=== PATIENT | female | born 1940 | race Caucasian/White ===

== ENCOUNTER 2016-11-30 11:01 | Outpatient (CLI) | payer OTHER | END 2016-11-30 11:02 | disposition home or self-care (01) | DX: M85.89 Other specified disorders of bone density and structure, multiple sites (principal) ==

== ENCOUNTER 2017-03-04 13:26 | Outpatient (CLI) | payer OTHER ==
[2017-03-04 14:17] LABS: HEMOGLOBIN A1C 0.55 g/dL
[2017-03-05 06:03] LABS: TEST RESULT REPORT (())
== END 2017-03-04 13:27 | disposition home or self-care (01) ==
LOC: LAB 13:26
PROVIDERS: ATTEND Nurse Practitioner Family
DX: E55.9 Vitamin D deficiency, unspecified (principal); R73.01 Impaired fasting glucose
CPT/HCPCS: 36415; 81599; 82306; 83036; 85651; 86140

== ENCOUNTER 2017-09-09 07:25 | Day surgery (SDC) | payer OTHER ==
[~2017-09-09 07:25] MED LIST: BRIMONIDINE 0.2% OPHTH DROPS 5 ML ONE; CYCLOPENTOLATE 1% OPHTH DROPS 2 ML ONE; KETOROLAC 0.45% OPHTH DROPS ONE; PHENYLEPHRINE 2.5% OPHTH 2 ML DROPS ONE; PROPARACAINE 0.5% OPHTH DROPS 15 ML ONE; TIMOLOL 0.5% OPHTH DROPS ONE
[2017-09-09] MEDS: LACTATED RINGERS 500 ML IV ONE (07:53)
[2017-09-09] MEDS ORDERED: MIDAZOLAM 2 MG/2 ML VIAL IVP ONE (08:35)
[2017-09-09] MEDS: BRIMONIDINE 0.2% OPHTH DROPS 5 ML OPTH ONE (08:40)
[2017-09-09] MEDS: EPINEPHrine 1 MG/ML AMP IVP ONE (08:40)
[2017-09-09] MEDS: BSS/LIDOCAINE/EPINEPHRINE 1 ML SYRINGE IO ONE ×2 (08:41)
[2017-09-09] MEDS: CHONDR SULF/HYALURONATE SYRINGE IO ONE (08:41)
[2017-09-09] MEDS: TIMOLOL 0.5% OPHTH DROPS OPTH ONE (08:41)
[2017-09-09] MEDS: TRIAMCIN/MOXIFLOX/VANCO 1 ML VIAL IO ONE ×2 (08:42)
[2017-09-09] MEDS: PROPARACAINE 0.5% OPHTH DROPS 15 ML LEFTEYE ONE (08:42)
[2017-09-09 09:11] VITALS: BP 145/70
--- NOTE | 2017-09-09 10:39 | OPERATIVE REPORT ---
DATE OF SURGERY: 09/09/2017 00:00:00 PREOPERATIVE DIAGNOSIS: Visually significant cataract, left eye. This was her first cataract surgery . POSTOPERATIVE DIAGNOSIS: Visually significant cataract, left eye. This was her first cataract surger y. NAME OF PROCEDURE: Phacoemulsification posterior chamber intraocular lens implant, left eye. SURGEON: Kory Hernandez MD ANESTHESIA: Monitored anesthesia care. COMPLICATIONS: None. 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 Best corrected visual acuity was 20/25 with glare to 20/70 in the left eye. Indications for surgery were overall decrease in vision, difficulty with driving in low light or at night and difficulty driving at night because of headlights from othe r vehicles and/or streetlights. She was consented at length concerning the risks and benefits of abby ract surgery after which she expressed a desire to proceed with surgery. OPERATIVE PROCEDURE: The patient was taken into OR #3 and placed under monitored anesthesia care. A s urgical time-out was conducted confirming correct patient, correct procedure and correct surgical sit e. She was given topical anesthesia and then prepped and draped in the usual sterile fashion. The eye was entered at the 6 and 3 o'clock positions. Intracameral Shugarcaine was injected into the anterio r chamber followed by Viscoat. A continuous tear curvilinear capsulorrhexis was performed. The nucleu s was hydrodissected and phacoemulsified. The cortex was evacuated using automated infusion and aspir ation. Provisc was injected into the capsular bag and a 22.5 diopter intraocular lens inserted into t he bag. Approximately 0.8 mL of a mixture of triamcinolone, moxifloxacin, and vancomycin was injected subconjunctivally in the superior quadrant for infection and inflammation prophylaxis. I/A was used to evacuate the viscoelastic materials. The eye was inflated, the physiologic pressure using balanced salt solution found to be watertight. The patient was taken from the operating room in good conditio n and given postoperative instructions. JOB #: [id number] EXT JOB #:[id number]
== END 2017-09-09 07:26 | disposition home or self-care (01) ==
LOC: SDS 07:25
PROVIDERS: ATTEND Ophthalmology
PROC: 08RK3JZ Replacement of Left Lens with Synthetic Substitute, Percutaneous Approach (ICD-10-PCS; principal; 2017-09-09 08:30)
DX: H25.12 Age-related nuclear cataract, left eye (principal); I10 Essential (primary) hypertension; H35.3130 Nonexudative age-related macular degeneration, bilateral, stage unspecified; Z87.891 Personal history of nicotine dependence
CPT/HCPCS: 66984; A9270; J3490; V2632

== ENCOUNTER 2018-05-03 08:00 | Outpatient (CLI) | payer OTHER ==
[2018-05-03 12:36] LABS: BASOPHILS % (AUTO) 0.6 %; EOSINOPHILS # (AUTO) 0.2 10^3/uL (0.0-0.7); EOSINOPHILS % (AUTO) 2.5 %; HGB - HEMOGLOBIN 13.5 g/dL (12.0-16.0); LYMPHOCYTES % (AUTO) 25.3 %; MEAN CORPUSCULAR HEMOGLOBIN 29.6 pg (27.0-31.0); MEAN CORPUSCULAR HGB CONC 34.1 g/dL (32.0-36.0); MEAN CORPUSCULAR VOLUME 86.8 fL (81.0-99.0); MEAN PLATELET VOLUME 7.4 fL (7.9-10.8); MONOCYTES # (AUTO) 0.6 10^3/uL (0.0-1.0); MONOCYTES % (AUTO) 7.9 %; NEUTROPHILS # (AUTO) 5.1 10^3/uL (1.5-6.6); NEUTROPHILS % (AUTO) 63.7 %; PLT - PLATELET COUNT 261 10^3/uL (130-450); RED BLOOD COUNT 4.57 10^6/uL (4.20-5.40); RED CELL DISTRIBUTION WIDTH 14.5 % (12.0-15.0); WHITE BLOOD COUNT 8.1 x10^3/uL (4.8-10.8)
[2018-05-03 13:07] LABS: ALBUMIN 4.1 g/dL (3.2-5.5); ALBUMIN/GLOBULIN RATIO 1.1 (1.0-2.2); ALKALINE PHOSPHATASE 82 IU/L (42-121); ALT ALANINE AMINOTRANSFERASE 27 IU/L (10-60); AST ASPARTATE AMINOTRANSFERASE 28 IU/L (10-42); BILIRUBIN,TOTAL 0.7 mg/dL (0.2-1.0); BUN - BLOOD UREA NITROGEN 17 mg/dL (6-20); CALCIUM 9.8 mg/dL (8.5-10.3); CARBON DIOXIDE - CO2 29 mmol/L (21-32); CHLORIDE 103 mmol/L (101-111); CREATININE 0.8 mg/dL (0.4-1.0); GFR - MDRD 69 (>89); GLUCOSE 110 mg/dL (70-100); SODIUM 138 mmol/L (135-145); TOTAL PROTEIN 7.9 g/dL (6.7-8.2)
== END 2018-05-03 08:01 ==
LOC: LAB.WCP 08:00
PROVIDERS: ATTEND Family Medicine
DX: M31.6 Other giant cell arteritis (principal); M35.3 Polymyalgia rheumatica; I10 Essential (primary) hypertension
CPT/HCPCS: 36415; 80053; 84443; 85025; 85651

== ENCOUNTER 2018-07-12 11:12 | Outpatient (CLI) | payer OTHER ==
--- NOTE | 2018-07-13 14:15 | Mammography Report ---
Reason: SCREENING w MARLO Procedure Date: 07/12/2018 Accession Number: [id number] / [id number] Procedure: LUIS - Screening Mammo w/Marlo CPT Code: FULL RESULT: EXAM: Screening Mammo w/Marlo DATE: 07/12/2018 11:49 AM CLINICAL HISTORY: 78 year-old nulliparous female with a sister with ovarian cancer in her 50s. TECHNIQUE: Bilateral CC and MLO views were obtained. COMPARISON: 09/30/2015, 05/03/2012. FINDINGS: The breasts demonstrate scattered fibroglandular densities bilaterally. 2 well-circumscribed hyperdense nodules in the left upper outer breast are stable. No suspicious masses, clustered microcalcifications, or regions of architectural distortion are identified. IMPRESSION: Benign findings RECOMMENDATION: Routine annual screening unless otherwise clinically indicated. BIRADS CATEGORY 2: Benign findings STANDARD QUALIFYING STATEMENTS: 1. This examination was not reviewed with the aid of Computer-Aided Detection (CAD). 2. A negative or benign imaging report should not delay biopsy if clinically suspicious findings are present. Consider surgical consultation if warrented. More than 5% of cancers are not identified by imaging. 3. Dense breasts may obscure an underlying neoplasm. 4. This examination was reviewed with the aid of 3D breast imaging (tomosynthesis).
== END 2018-07-12 11:13 | disposition home or self-care (01) ==
LOC: DI 11:12
DX: Z12.31 Encounter for screening mammogram for malignant neoplasm of breast (principal); Z80.41 Family history of malignant neoplasm of ovary
CPT/HCPCS: 77063; 77067

== ENCOUNTER 2018-12-22 14:08 | Outpatient (CLI) | payer OTHER ==
--- NOTE | 2018-12-22 16:38 | DEXA Report ---
Reason: ASYMPTOMATIC POSTMENOPAUSAL STATUS Procedure Date: 12/22/2018 Accession Number: [id number] / [id number] Procedure: DEX - Dexa Spine and/or Hip CPT Code: FULL RESULT: EXAM: Dexa Spine and/or Hip DATE: 12/22/2018 2:28 PM CLINICAL HISTORY: ASYMPTOMATIC POSTMENOPAUSAL STATUS TECHNIQUE: Dual energy x-ray absorptiometry (DXA) was performed on a Coquelux System. Regions measured are the AP Spine, femoral neck, and if needed forearm. COMPARISON: 11/30/2016 In accordance with the International Society for Clinical Densitometry (ISCD) guidelines, data from previous exams may be reanalyzed using current recommendations and techniques. This is done to allow a more accurate basis for comparison with the current study. FINDINGS: The data for the lumbar spine is as follows: BMD (g/cm/cm) T-SCORE Z-SCORE REGION L1 0.757 -3.1 -2.1 L2 0.774 -3.5 -2.6 L3 1.094 -0.9 0.1 L4 1.096 -0.9 0.1 TOTAL 0.942 -2.0 -1.0 NOTE: All evaluable vertebrae are used for classification The data for the hip is as follows: BMD (g/cm/cm) T-SCORE Z-SCORE REGION Neck 0.700 -2.4 -0.8 TOTAL 0.783 -1.8 -0.4 NOTE: The femoral neck or total proximal femur, whichever is lowest, is used for classification. DXA RESULTS SUMMARY: Spine SCAN DATE AGE BMD CHANGE VS CHANGE VS PREVIOUS PREVIOUS % [birth year][age]22/2018 [age] 0[age]942 0.031* 3.4* 11/30/2016 [age] 0.911 * Denotes significant change at the 95% confidence level. Denotes dissimilar scan types or analysis methods. DXA RESULTS SUMMARY: Hip SCAN DATE AGE BMD CHANGE VS CHANGE VS PREVIOUS PREVIOUS % [birth year]22/2018 78.4 0.783 0.000 0.0 11/30/2016 76.3 0.783 * Denotes significant change at the 95% confidence level. Denotes dissimilar scan types or analysis methods. IMPRESSION: THE WHO CLASSIFICATION BASED ON THE INTERNATIONAL REFERENCE STANDARD IS OSTEOPENIA. THE FRACTURE RISK IS INCREASED. RECOMMENDATION: Patients with diagnosis of osteoporosis or osteopenia should have regular bone mineral density assessment. For those eligible for Medicare, routine testing is allowed once every 2 years. Testing frequency can be increased for patients who have rapidly progressing disease or for those who are receiving medical therapy to restore bone mass. COMMENT: World Health Organization (WHO) definitions for osteoporosis and osteopenia: NORMAL BMD: T-score at -1.0 or higher, fracture risk is low OSTEOPENIA BMD: T-score between -1.0 and -2.5, fracture risk is increased. OSTEOPOROSIS BMD: T-score at -2.5 or lower, fracture risk is high. National Osteoporosis Foundation recommends: 1. Obtain adequate dietary calcium (at least 1200 mg per day) and vitamin D (400-800 international units per day). 2. Participate, as appropriate, in regular weightbearing and muscle-strengthening exercise. 3. Avoid tobacco use and reduce alcohol and caffeine intake. 4. For more detailed information see the website at www.NOF.org.
== END 2018-12-22 14:09 | disposition home or self-care (01) ==
LOC: DI 14:08
PROVIDERS: ATTEND Family Medicine
DX: M85.89 Other specified disorders of bone density and structure, multiple sites (principal)
CPT/HCPCS: 77080

== ENCOUNTER 2019-05-09 08:00 | Outpatient (CLI) | payer OTHER | END 2019-05-09 23:59 | LOC: LAB.WCP 08:00 | PROVIDERS: ATTEND Family Medicine | DX: M85.80 Other specified disorders of bone density and structure, unspecified site (principal) | CPT/HCPCS: 36415; 82306 ==

== ENCOUNTER 2019-10-12 09:11 | Emergency (ER) | payer OTHER ==
--- NOTE | 2019-10-12 09:31 | ED Physician Documentation ---
PD HPI CHEST PAIN - Stated complaint Stated Complaint: CP - Chief complaint Chief Complaint: Cardiac - History obtained from History obtained from: Patient - History of Present Illness Timing - onset: Last night, Yesterday Timing - onset during: Rest Timing - details: Abrupt onset (Onset yesterday/yesterday evening of a feeling of a fast heart rate associated with lightheadedness. No chest pressure per se. She has chronic mild leg edema without any recent increase. She had been having some shoulder and chest pain for about a week which is worse with lifting her arms and movement and the chest component is worse with movement and palpation. She had not had the fast heart rate feeling over the past week but just started yesterday.), Still present Quality: Pressure, Tightness, Aching (She has been having pain in both shoulders worse with reaching above shoulder height or overhead and also developing some pain in the anterior chest wall with movement and deep breathing. She has had this for about a week. She then developed the fast heart rate feeling yesterday so it sounds separate.) Location: Substernal Associated symptoms: Feeling faint / dizzy, Palpitations. No: Shortness of air, Diaphoresis, Nausea, Vomiting Similar symptoms before: Has not had sx before Review of Systems Constitutional: reports: Fatigue. denies: Fever, Chills, Myalgias Nose: denies: Rhinorrhea / runny nose, Congestion Throat: denies: Sore throat Cardiac: reports: Chest pain / pressure (aching pain for a week in sternal area chest and also both shoulders prior to that.) Respiratory: denies: Cough GI: denies: Abdominal Pain, Nausea, Vomiting, Diarrhea Skin: denies: Rash, Lesions Neurologic: reports: Generalized weakness. 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 HEENT: Tonsil/Adenoidectomy - Present Medications Home Medications: Ambulatory Orders Medication Instructions Recorded Confirmed amLODIPine [Norvasc] 5 mg PO DAILY 09/08/17 10/12/19 lisinopriL [Lisinopril] 40 mg PO DAILY 09/08/17 10/12/19 Olopatadine HCl [Patanol] 1 drops EACHEYE BID 10/12/19 10/12/19 Rivaroxaban [Xarelto] 20 mg PO DAILY #15 tablet 10/12/19 dexAMETHasone [Decadron] 4 mg PO DAILY #5 tablet 10/12/19 diltiaZEM CD [Cardizem Cd] 180 mg PO DAILY #15 capsule 10/12/19 - Allergies Allergies/Adverse Reactions: Allergies Allergy/AdvReac Type Severity Reaction Status Date / Time No Known Drug Allergies Allergy Verified 10/12/19 09:20 - Social History Does the pt smoke?: Yes Smoking Status: Former smoker Does the pt drink ETOH?: Yes Does the pt have substance abuse?: No - Immunizations Immunizations are current?: Yes - POLST Patient has POLST: No PD ED PE NORMAL - Vitals Vital signs reviewed: Yes - General General: Alert and oriented X 3, Well developed/nourished - HEENT HEENT: Ears normal, Pharynx benign - Neck Neck: Supple, no meningeal sign, No adenopathy - Cardiac Cardiac: No murmur, Other (There is parasternal chest wall tenderness on both left and right without any redness rash or sores.). No: RRR (Regular but tachycardic at a approximately 145.) - Abdomen Abdomen: Soft, Non tender - Derm Derm: Normal color, Warm and dry - Extremities Extremities: No deformity, No edema, No calf tenderness / cord, Other (There is tenderness in both lateral shoulders and at the AC joints. She has a limited range of motion above shoulder level because of pain in the shoulders. There is no rash redness or swelling noted.) - Neuro Neuro: Alert and oriented X 3, No motor deficit, Normal speech Eye Opening: Spontaneous Motor: Obeys Commands Verbal: Oriented GCS Score: 15 Results - Vitals Vitals: Vital Signs - 24 hr 10/12/19 10/12/19 10/12/19 09:20 10:47 12:00 Temperature 36.5 C Heart Rate 146 H 143 H 118 H Respiratory 16 16 14 Rate Blood Pressure 140/101 H 128/77 110/78 O2 Saturation 97 96 98 10/12/19 10/12/19 13:56 14:12 Temperature Heart Rate 95 123 H Respiratory 15 14 Rate Blood Pressure 119/77 115/82 H O2 Saturation 96 96 Oxygen O2 Source Room air - EKG (time done) 09:18 Rate: Rate (enter#) (143) Rhythm: SVT QRS: Normal Ischemia: Normal ST segments. No: ST elevation c/w ischemia, ST depression - Labs Labs: Laboratory Tests 10/12/19 10/12/19 10/12/19 10:05 10:05 10:05 WBC 9.6 RBC 4.59 Hgb 13.5 Hct 40.8 MCV 88.9 MCH 29.4 MCHC 33.1 RDW 13.2 Plt Count 251 MPV 8.9 Neut # (Auto) 7.0 H Lymph # (Auto) 1.5 [place] # (Auto) 0.9 Eos # (Auto) 0.1 Baso # (Auto) 0.1 Absolute Nucleated RBC 0.00 Nucleated RBC % 0.0 ESR Sodium 135 Potassium 3.9 Chloride 102 Carbon Dioxide 24 Anion Gap 9.0 BUN 15 Creatinine 0.9 Estimated GFR (MDRD) 60 L Glucose 234 H Calcium 9.1 Magnesium 2.1 Total Bilirubin 1.0 AST 17 ALT 18 Alkaline Phosphatase 84 Troponin I High Sens 5.7 B-Natriuretic Peptide Total Protein 7.3 Albumin 3.8 Globulin 3.5 Albumin/Globulin Ratio 1.1 Lipase 27 TSH Rheumatoid Factor 10/12/19 10/12/19 10/12/19 10:05 10:05 10:05 WBC RBC Hgb Hct MCV MCH MCHC RDW Plt Count MPV Neut # (Auto) Lymph # (Auto) [place] # (Auto) Eos # (Auto) Baso # (Auto) Absolute Nucleated RBC Nucleated RBC % ESR 55 H Sodium Potassium Chloride Carbon Dioxide Anion Gap BUN Creatinine Estimated GFR (MDRD) Glucose Calcium Magnesium Total Bilirubin AST ALT Alkaline Phosphatase Troponin I High Sens B-Natriuretic Peptide 289 H Total Protein Albumin Globulin Albumin/Globulin Ratio Lipase TSH 1.61 Rheumatoid Factor 10/12/19 10/12/19 10:05 12:59 WBC RBC Hgb Hct MCV MCH MCHC RDW Plt Count MPV Neut # (Auto) Lymph # (Auto) [place] # (Auto) Eos # (Auto) Baso # (Auto) Absolute Nucleated RBC Nucleated RBC % ESR Sodium Potassium Chloride Carbon Dioxide Anion Gap BUN Creatinine Estimated GFR (MDRD) Glucose Calcium Magnesium Total Bilirubin AST ALT Alkaline Phosphatase Troponin I High Sens 6.2 B-Natriuretic Peptide Total Protein Albumin Globulin Albumin/Globulin Ratio Lipase TSH Rheumatoid Factor NEGATIVE - Rads (name of study) chest xray Radiology: Prelim report reviewed (no infiltrates nor acute process), See rad report PD MEDICAL DECISION MAKING - ED course Complexity details: reviewed results, re-evaluated patient (Heart rate is slowed to 95-100 after diltiazem and then procainamide. Still appears to be in flutter. Blood pressure is adequate. I was going to have the patient in the hospital for further treatment and attempted conversion and initial heart evaluation with echo. However she had ducks at home and said she was unable to remain in the hospital.), considered differential (Appears SVT versus a flutter. We did give adenosine 6 mg IV which slowed the heart rate down and demonstrated the flutter ways more clearly. She was then given diltiazem to slow the heart rate down. This had minimal effect. Procainamide 1 g over 1 hour was given with slowing of the heart rate down to approximately 110. He looked to be still be in flutter but presumably had different ratio. The onset of the patient's fast heart rate seem to be yesterday evening so was under 24 hours. 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 She was quite sure about not being able to see in the hospital. She tried to contact friends to take care of her dogs. I told her was concerned about the fast heart rate returning and having further problems and having decompensating into congestive failure. She states she would return if she had worsening symptoms. We agreed on rate control medicines and anticoagulants. I talked with Dr. Paredes, her primary care, who will see her tomorrow in the office. We did the best treatment we could for her short of being in the hospital. Departure - Departure Disposition: 01 Home, Self Care Clinical Impression: New onset atrial flutter, Chest wall pain, Atrial flutter with rapid ventricular response Shoulder pain, bilateral Qualifiers: Chronicity: acute Qualified Code(s): M25.511 - Pain in right shoulder Condition: Stable Record reviewed to determine appropriate education?: Yes Instructions: ED Afib Follow-Up: Shabbir Paredes MD [Primary Care Provider] - Prescriptions: dexAMETHasone [Decadron] 4 mg PO DAILY #5 tablet diltiaZEM CD [Cardizem Cd] 180 mg PO DAILY #15 capsule Rivaroxaban [Xarelto] 20 mg PO DAILY #15 tablet Comments: Stop your amlodipine and replace it with diltiazem daily. Still continue your lisinopril. Stay well-hydrated. Take Xarelto blood thinner daily. Decadron steroid anti-inflammatory to help with the shoulder and chest pains which seem inflammatory. Add Tylenol 500 mg 4 times a day as needed for pains. Follow-up with Dr. Paredes's office in the next couple of days for recheck on your heart rhythm and blood pressure etc. Discharge Date/Time: 10/12/19 14:14
[2019-10-12] MEDS ORDERED: SODIUM CHLORIDE 0.9% 1,000 ML IV ONE (09:49)
[2019-10-12] MEDS ORDERED: KETOROLAC 15 MG/ML VIAL IVP STA (09:50)
[2019-10-12] MEDS ORDERED: ADENOSINE 6 MG/2 ML VIAL IVP STA (09:50)
[2019-10-12 10:18] LABS: BASOPHILS # (AUTO) 0.1 10^3/uL (0.0-0.1); BASOPHILS % (AUTO) 0.5 %; EOSINOPHILS # (AUTO) 0.1 10^3/uL (0.0-0.7); EOSINOPHILS % (AUTO) 1.3 %; HGB - HEMOGLOBIN 13.5 g/dL (12.0-16.0); LYMPHOCYTES # (AUTO) 1.5 10^3/uL (1.5-3.5); LYMPHOCYTES % (AUTO) 15.7 %; MEAN CORPUSCULAR HEMOGLOBIN 29.4 pg (27.0-31.0); MEAN CORPUSCULAR HGB CONC 33.1 g/dL (32.0-36.0); MEAN CORPUSCULAR VOLUME 88.9 fL (81.0-99.0); MEAN PLATELET VOLUME 8.9 fL (7.9-10.8); MONOCYTES # (AUTO) 0.9 10^3/uL (0.0-1.0); MONOCYTES % (AUTO) 8.9 %; NEUTROPHILS % (AUTO) 73.2 %; PLT - PLATELET COUNT 251 10^3/uL (130-450); RED BLOOD COUNT 4.59 10^6/uL (4.20-5.40); RED CELL DISTRIBUTION WIDTH 13.2 % (12.0-15.0); WHITE BLOOD COUNT 9.6 x10^3/uL (4.8-10.8)
[2019-10-12 10:30] LABS: ALBUMIN 3.8 g/dL (3.2-5.5); ALBUMIN/GLOBULIN RATIO 1.1 (1.0-2.2); CALCIUM 9.1 mg/dL (8.5-10.3); CREATININE 0.9 mg/dL (0.4-1.0); MAGNESIUM 2.1 mg/dL (1.7-2.8); TOTAL PROTEIN 7.3 g/dL (6.7-8.2)
[2019-10-12] MEDS ORDERED: diltiaZEM INJ 5 MG/ML VIAL IVP STA (10:31)
[2019-10-12 10:42] LABS: RHEUMATOID FACTOR NEGATIVE (Negative)
[2019-10-12] MEDS ORDERED: PROCAINAMIDE 1,000 MG in SODIUM CHLORIDE 0.9% 240 ML IV STA (11:07)
[2019-10-12] MEDS ORDERED: SODIUM CHLORIDE FLUSH 0.9% 10 ML SYRINGE IVP PRN (12:28)
[2019-10-12] MEDS ORDERED: ACETAMINOPHEN 325 MG TABLET PO PRN (12:28)
--- NOTE | 2019-10-12 12:44 | PHARMACY PROGRESS NOTE ---
- Best Possible Medication History Admit Date and Time: PATIENT STILL IN ED Processed by: Pharmacy Medication History completed: Yes Patient Interview: Completed Secondary Source(s): Physician records, Pharmacy records, Insurance records As the person ultimately responsible for medication therapy, providers are able to order a medication from an existing home medication list in [facility] via the "Reconcile Routine" prior to Confirmation of that medication by customer support assistant. Such practice is discouraged except when the physician, in their clinical judgment, deems that a medical need exists for a medication without regard to previous use.
[2019-10-12] MEDS ORDERED: SODIUM CHLORIDE 0.9% 1,000 ML IV SCH (13:00)
--- NOTE | 2019-10-12 13:13 | XRAY Report ---
Reason: SVT, palpitations Procedure Date: 10/12/2019 Accession Number: [id number] / [id number] Procedure: XR - Chest 2 View X-Ray CPT Code: 56138 Final Report FULL RESULT: EXAM: CHEST RADIOGRAPHY EXAM DATE: 10/12/2019 12:45 PM. CLINICAL HISTORY: SVT, palpitations. COMPARISON: None. TECHNIQUE: 2 views. FINDINGS: Lungs/Pleura: No consolidative process or pulmonary edema. Negative for pleural effusion and pneumothorax. Mediastinum: There is mild tortuosity of the aorta with mild to moderate calcification. Heart size is normal. Trachea is midline. Other: None. IMPRESSION: 1. No consolidative pneumonia or edema. 2. Lingula linear mild atelectasis. RADIA
[2019-10-12] MEDS ORDERED: RIVAROXABAN 15 MG TABLET PO STA (13:38)
[2019-10-12] MEDS ORDERED: diltiaZEM 30 MG TABLET PO STA (13:38)
[2019-10-12 14:14] VITALS: BP 115/82
[2019-10-12] MEDS ORDERED: SODIUM CHLORIDE FLUSH 0.9% 10 ML SYRINGE IVP SCH (17:00)
[2019-10-12] MEDS ORDERED: FAMOTIDINE 20 MG TABLET PO SCH (21:00)
[2019-10-13] MEDS ORDERED: ENOXAPARIN 40 MG/0.4 ML SYRINGE SUBQ SCH (09:00)
[2019-10-14 12:14] LABS: ANA SCREEN NEGATIVE (NEGATIVE)
== END 2019-10-12 14:14 | disposition home or self-care (01) ==
LOC: ED 09:11
DX: I48.92 Unspecified atrial flutter (principal); I44.1 Atrioventricular block, second degree; R07.89 Other chest pain; M25.511 Pain in right shoulder; M25.512 Pain in left shoulder; I10 Essential (primary) hypertension; Z87.891 Personal history of nicotine dependence
CPT/HCPCS: 36415; 71046; 83690; 83735; 83880; 84484; 85651; 86038; 86430; 93005; 96361; 96365; 96375; 99284; 99285; A9270; J0153; J2690; 80053; 84443; 85025

== ENCOUNTER 2019-10-18 08:07 | Outpatient (CLI) | payer OTHER | END 2019-10-18 08:08 | disposition home or self-care (01) | LOC: DI 08:07 | PROVIDERS: ATTEND Family Medicine | DX: I48.92 Unspecified atrial flutter (principal); I77.810 Thoracic aortic ectasia | CPT/HCPCS: 93306 ==

== ENCOUNTER 2019-10-19 08:00 | Outpatient (CLI) | payer OTHER | END 2019-10-19 23:59 | disposition home or self-care (01) | LOC: LAB.WCP 08:00 | PROVIDERS: ATTEND Family Medicine | DX: M35.3 Polymyalgia rheumatica (principal) | CPT/HCPCS: 36415; 85651 ==

== ENCOUNTER 2019-10-27 08:10 | Outpatient (CLI) | payer OTHER ==
[2019-10-27 09:04] LABS: BUN - BLOOD UREA NITROGEN 24 mg/dL (6-20); CARBON DIOXIDE - CO2 27 mmol/L (21-32); CHLORIDE 98 mmol/L (101-111); CHOL/HDL RATIO 5.6 (<4.4); CHOLESTEROL 220 mg/dL; GFR - MDRD 53 (>89); GLUCOSE 117 mg/dL (70-100); HDL CHOLESTEROL 39 mg/dL; LDL CHOLESTEROL,CALCULATED 125 mg/dL; LDL/HDL RATIO 3.2 (<4.4); MAGNESIUM 2.6 mg/dL (1.7-2.8); SODIUM 135 mmol/L (135-145); VLDL CHOLESTEROL 56 mg/dL
== END 2019-10-27 08:11 | disposition home or self-care (01) ==
LOC: LAB 08:10
PROVIDERS: ATTEND Internal Medicine Cardiovascular Disease
DX: I47.1 Supraventricular tachycardia (principal); I10 Essential (primary) hypertension; R00.2 Palpitations
CPT/HCPCS: 36415; 80048; 80061; 82088; 83721; 83735; 83835; 84443

== ENCOUNTER 2020-01-05 10:12 | Emergency (ER) | payer OTHER ==
--- NOTE | 2020-01-05 10:20 | ED Physician Documentation ---
PD HPI CHEST PAIN - Stated complaint Stated Complaint: CHEST PAIN - History obtained from History obtained from: Patient - History of Present Illness Timing - onset: How many hours ago (few) Timing - onset during: Light activity Timing - duration: Hours (few) Timing - details: Abrupt onset, Still present Quality: Aching, Sharp, Pain Location: Substernal Radiation: Back Improved by: Rest Worsened by: Inspiration. No: Exertion, Eating, Movement, Palpation Associated symptoms: No: Shortness of air, Nausea, Vomiting, Feeling faint / dizzy Similar symptoms before: Has not had sx before Review of Systems Constitutional: denies: Fever, Chills Nose: denies: Rhinorrhea / runny nose, Congestion Throat: denies: Sore throat Cardiac: reports: Chest pain / pressure. denies: Palpitations, Pedal edema, Calf pain Respiratory: denies: Cough GI: denies: Nausea, Vomiting, Diarrhea Skin: denies: Rash, Lesions PD PAST MEDICAL HISTORY - Past Medical History Cardiovascular: Hypertension, Other (thoracic aortic aneurysm. Had nuclear stress and ECHO with chest pain episode months ago and was normal at that time, but was found to have thoracic aneurysm almost 5 cm. 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 HEENT: Tonsil/Adenoidectomy - Present Medications Home Medications: Ambulatory Orders Medication Instructions Recorded Confirmed amLODIPine [Norvasc] 5 mg PO DAILY 09/08/17 10/12/19 lisinopriL [Lisinopril] 40 mg PO DAILY 09/08/17 10/12/19 Olopatadine HCl [Patanol] 1 drops EACHEYE BID 10/12/19 10/12/19 Rivaroxaban [Xarelto] 20 mg PO DAILY #15 tablet 10/12/19 dexAMETHasone [Decadron] 4 mg PO DAILY #5 tablet 10/12/19 diltiaZEM CD [Cardizem Cd] 180 mg PO DAILY #15 capsule 10/12/19 - Allergies Allergies/Adverse Reactions: Allergies Allergy/AdvReac Type Severity Reaction Status Date / Time No Known Drug Allergies Allergy Verified 01/05/20 10:26 - Social History Does the pt smoke?: Yes Smoking Status: Former smoker Does the pt drink ETOH?: Yes Does the pt have substance abuse?: No - Immunizations Immunizations are current?: Yes - POLST Patient has POLST: No PD ED PE NORMAL - Vitals Vital signs reviewed: Yes - General General: Alert and oriented X 3, No acute distress, Well developed/nourished - HEENT HEENT: Pharynx benign - Neck Neck: Supple, no meningeal sign, No adenopathy - Cardiac Cardiac: RRR, No murmur - Respiratory Respiratory: Clear bilaterally, Other (no chestwall tenderness) - Abdomen Abdomen: Soft, Non tender - Back Back: No spinal TTP - Derm Derm: Normal color, Warm and dry - Extremities Extremities: No tenderness to palpate, Normal ROM s pain, No edema, No calf tenderness / cord - Neuro Neuro: Alert and oriented X 3, No motor deficit, Normal speech Results - Vitals Vitals: Vital Signs - 24 hr 01/05/20 01/05/20 01/05/20 10:15 10:42 12:01 Temperature 36.4 C L Heart Rate 80 75 66 Respiratory 19 16 16 Rate Blood Pressure 202/99 H 181/93 H 135/74 H O2 Saturation 98 98 99 01/05/20 13:47 Temperature Heart Rate 72 Respiratory 16 Rate Blood Pressure 134/76 H O2 Saturation 98 Oxygen O2 Source Room air - EKG (time done) 10:22 Rate: Rate (enter#) (78) Rhythm: NSR [place]: Normal Intervals: Normal [place] QRS: Normal Ischemia: Normal ST segments. No: ST elevation c/w ischemia, ST depression - Labs Labs: Laboratory Tests 01/05/20 01/05/20 01/05/20 10:15 10:15 10:15 WBC 7.1 RBC 4.81 Hgb 14.5 Hct 43.2 MCV 89.8 MCH 30.1 MCHC 33.6 RDW 13.5 Plt Count 228 MPV 8.7 Neut # (Auto) 4.6 Lymph # (Auto) 1.7 [place] # (Auto) 0.5 Eos # (Auto) 0.2 Baso # (Auto) 0.0 Absolute Nucleated RBC 0.00 Nucleated RBC % 0.0 ESR PT INR APTT D-Dimer Sodium 136 Potassium 3.7 Chloride 100 L Carbon Dioxide 24 Anion Gap 12.0 BUN 17 Creatinine 0.8 Estimated GFR (MDRD) 69 L Glucose 156 H Calcium 9.2 Total Bilirubin 0.7 AST 19 ALT 17 Alkaline Phosphatase 58 Troponin I High Sens 3.8 B-Natriuretic Peptide Total Protein 7.8 Albumin 4.0 Globulin 3.8 Albumin/Globulin Ratio 1.1 Lipase 34 01/05/20 01/05/20 01/05/20 10:15 10:15 10:15 WBC RBC Hgb Hct MCV MCH MCHC RDW Plt Count MPV Neut # (Auto) Lymph # (Auto) [place] # (Auto) Eos # (Auto) Baso # (Auto) Absolute Nucleated RBC Nucleated RBC % ESR 27 PT 11.5 INR 1.0 APTT 31.3 D-Dimer 392.6 H Sodium Potassium Chloride Carbon Dioxide Anion Gap BUN Creatinine Estimated GFR (MDRD) Glucose Calcium Total Bilirubin AST ALT Alkaline Phosphatase Troponin I High Sens B-Natriuretic Peptide 106 H Total Protein Albumin Globulin Albumin/Globulin Ratio Lipase - Rads (name of study) chest xray Radiology: Prelim report reviewed (normal chest xray), See rad report chest CT-A for aorta Radiology: Prelim report reviewed (prior aneurysm without signs of dissection nor leaking. ), See rad report PD MEDICAL DECISION MAKING - ED course Complexity details: considered differential (having sharp pain in chest, pleuritic, with history of thoracic aortic aneurysm almost [address]-A to ensure no dissection, leaking. ), d/w patient Departure - Departure Disposition: 01 Home, Self Care Clinical Impression: Pleuritic chest pain Condition: Stable Record reviewed to determine appropriate education?: Yes Instructions: ED Chest Pain Pleurisy Follow-Up: Shabbir Paredes MD [Primary Care Provider] - Comments: No signs of significant or dangerous cause for your pain. Presume musculoskeletal at this time. Recheck if any other symptoms such as rash fevers cough or other problems. Meanwhile treat with an anti-inflammatory such as ibuprofen or naproxen 2-3 times a day and add Tylenol 500 mg to 650 mg 4 times a day as needed for pains. Recheck if not improved well over the next few days. Discharge Date/Time: 01/05/20 13:55
[2020-01-05 10:33] LABS: BASOPHILS % (AUTO) 0.4 %; EOSINOPHILS # (AUTO) 0.2 10^3/uL (0.0-0.7); EOSINOPHILS % (AUTO) 2.4 %; HGB - HEMOGLOBIN 14.5 g/dL (12.0-16.0); LYMPHOCYTES # (AUTO) 1.7 10^3/uL (1.5-3.5); LYMPHOCYTES % (AUTO) 24.3 %; MEAN CORPUSCULAR HEMOGLOBIN 30.1 pg (27.0-31.0); MEAN CORPUSCULAR HGB CONC 33.6 g/dL (32.0-36.0); MEAN CORPUSCULAR VOLUME 89.8 fL (81.0-99.0); MEAN PLATELET VOLUME 8.7 fL (7.9-10.8); MONOCYTES # (AUTO) 0.5 10^3/uL (0.0-1.0); MONOCYTES % (AUTO) 7.6 %; NEUTROPHILS # (AUTO) 4.6 10^3/uL (1.5-6.6); PLT - PLATELET COUNT 228 10^3/uL (130-450); RED BLOOD COUNT 4.81 10^6/uL (4.20-5.40); RED CELL DISTRIBUTION WIDTH 13.5 % (12.0-15.0); WHITE BLOOD COUNT 7.1 x10^3/uL (4.8-10.8)
[2020-01-05] MEDS ORDERED: SODIUM CHLORIDE 0.9% 1,000 ML IV ONE (10:41)
[2020-01-05] MEDS ORDERED: KETOROLAC 15 MG/ML VIAL IVP STA (10:41)
[2020-01-05] MEDS ORDERED: MORPHINE 2 MG/ML CARPUJECT IVP STA (10:43)
[2020-01-05 10:49] LABS: ALBUMIN/GLOBULIN RATIO 1.1 (1.0-2.2); BILIRUBIN,TOTAL 0.7 mg/dL (0.2-1.0); CALCIUM 9.2 mg/dL (8.5-10.3); CREATININE 0.8 mg/dL (0.4-1.0); TOTAL PROTEIN 7.8 g/dL (6.7-8.2)
[2020-01-05] MEDS ORDERED: IOVERSOL 320 100 ML VIAL IVP ONE ×2 (10:49→11:17)
--- NOTE | 2020-01-05 10:51 | XRAY Report ---
Reason: Chest pain Procedure Date: 01/05/2020 Accession Number: [id number] / [id number] Procedure: XR - Chest 1 View X-Ray CPT Code: 78257 Final Report FULL RESULT: EXAM: CHEST RADIOGRAPHY EXAM DATE: 01/05/2020 10:42 AM. CLINICAL HISTORY: Chest pain. COMPARISON: CHEST 2 VIEW 10/12/2019 12:37 PM. TECHNIQUE: 1 view. FINDINGS: Lungs/Pleura: Interval decreased lung volumes. Very mild increase of vascular markings and lower lung interstitial markings. Probable mild focal atelectasis versus infiltrate within the left lower lung retrocardiac region. No yuridia pleural effusion. No pneumothorax. Mediastinum: Stable cardiac enlargement. Other: None. IMPRESSION: 1. Interval decreased lung volumes. Very mild increase of vascular markings and lower lung interstitial markings. 2. Probable mild focal atelectasis versus infiltrate within the left lower lung. 3. Stable cardiac enlargement. RADIA
[2020-01-05 11:05] LABS: PT - PROTHROMBIN TIME 11.5 secs (9.9-12.6)
[2020-01-05 11:12] LABS: PARTIAL THROMBOPLASTIN TIME 31.3 secs (24.9-33.3)
[2020-01-05 11:19] LABS: D-DIMER 392.6 ng/mL (200.0-255.0)
--- NOTE | 2020-01-05 11:52 | CT Report ---
Reason: chest pain; known thoracic aneurysm Procedure Date: 01/05/2020 Accession Number: [id number] / [id number] Procedure: CT - ANGIO CHEST W/WO CPT Code: Final Report FULL RESULT: EXAM: CTA CHEST EXAM DATE: 01/05/2020 11:15 AM. CLINICAL HISTORY: Chest pain; known thoracic aneurysm.. COMPARISON: CHEST 1 VIEW 01/05/2020 10:24 AM. TECHNIQUE: Prior to and following intravenous administration of 80 cc Optiray 320, multiplanar 3D/MIP reconstruction of the thoracic aorta was performed. In accordance with CT protocol optimization, one or more of the following dose reduction techniques were utilized for this exam: automated exposure control, adjustment of mA and/or KV based on patient size, or use of iterative reconstructive technique. FINDINGS: Vascular Structures: There is fusiform aneurysmal dilatation of the ascending aorta. Maximal dimension measures 4.8 x 4.8 cm about the mid ascending aorta smoothly tapering toward the aortic arch and towards the aortic valves. The aortic arch is normal in caliber. The proximal descending thoracic aorta is upper limits of normal measuring 3.0 cm tapering to normal caliber in the midportion. The upper abdominal aorta is normal in caliber. No evidence for aortic dissection or aneurysm rupture. No evidence for acute pulmonary emboli. Lungs/Pleura: No focal consolidation, effusions or edema evident. Mild peripheral reticular opacity is present at the lung bases suggesting mild changes of fibrosis. Some superimposed atelectasis could also be present. Mediastinum: No significant cardiac enlargement or pericardial effusion. No adenopathy or mass lesion identified. A hiatal hernia measures approximately 3.0 cm. Upper Abdomen: The upper abdomen is within normal limits. Other: A Schmorl's node is present about the superior endplate of T11. There is partial visualization of a hemangioma involving L1. IMPRESSION: 1. 4.8 cm fusiform aneurysmal dilatation of the mid ascending aorta. Comparison with any available older outside studies suggested if possible. 2. Borderline dilatation of the most proximal descending thoracic aorta measures 3.0 cm. 3. No aneurysm rupture or dissection evident. 4. Mild pulmonary fibrosis at the lung bases. 5. Small hiatal hernia measuring 3.0 cm. RADIA
[2020-01-05 13:48] VITALS: BP 134/76
== END 2020-01-05 13:55 | disposition home or self-care (01) ==
LOC: ED 10:12
DX: R07.81 Pleurodynia (principal); I10 Essential (primary) hypertension; Z87.891 Personal history of nicotine dependence
CPT/HCPCS: 36415; 71045; 71275; 80053; 83690; 83880; 84484; 85025; 85379; 85610; 85651; 85730; 93005; 96374; 99284; Q9967

== ENCOUNTER 2020-04-09 10:12 | Emergency (ER) | payer MEDICARE, OTHER ==
[2020-04-09 11:00] LABS: BASOPHILS % (AUTO) 0.4 %; EOSINOPHILS # (AUTO) 0.2 10^3/uL (0.0-0.7); EOSINOPHILS % (AUTO) 2.8 %; HGB - HEMOGLOBIN 13.8 g/dL (12.0-16.0); LYMPHOCYTES # (AUTO) 1.9 10^3/uL (1.5-3.5); LYMPHOCYTES % (AUTO) 27.8 %; MEAN CORPUSCULAR HEMOGLOBIN 29.4 pg (27.0-31.0); MEAN CORPUSCULAR HGB CONC 33.1 g/dL (32.0-36.0); MEAN CORPUSCULAR VOLUME 88.7 fL (81.0-99.0); MEAN PLATELET VOLUME 8.5 fL (7.9-10.8); MONOCYTES # (AUTO) 0.6 10^3/uL (0.0-1.0); MONOCYTES % (AUTO) 8.6 %; NEUTROPHILS # (AUTO) 4.1 10^3/uL (1.5-6.6); PLT - PLATELET COUNT 224 10^3/uL (130-450); RED CELL DISTRIBUTION WIDTH 13.3 % (12.0-15.0); WHITE BLOOD COUNT 6.8 x10^3/uL (4.8-10.8)
--- NOTE | 2020-04-09 11:13 | XRAY Report ---
PROCEDURE: Chest 1 View X-Ray INDICATIONS: Chest Pain TECHNIQUE: One view of the chest was acquired. COMPARISON: 01/05/2020 FINDINGS: Surgical changes and devices: None. Lungs and pleura: No pleural effusions or pneumothorax. Lungs are clear. Mediastinum: Mediastinal contours appear normal. Heart size is enlarged. Bones and chest wall: No suspicious bony lesions. Overlying soft tissues appear unremarkable. IMPRESSION: No acute cardiopulmonary pathology. Reviewed by: Austyn Wesley MD on 04/09/2020 11:12 AM PDT Approved by: Austyn Wesley MD on 04/09/2020 11:12 AM PDT Station ID: [id number]
[2020-04-09 11:18] LABS: ALBUMIN 3.9 g/dL (3.2-5.5); ALBUMIN/GLOBULIN RATIO 1.1 (1.0-2.2); BILIRUBIN,TOTAL 0.7 mg/dL (0.2-1.0); CALCIUM 9.1 mg/dL (8.5-10.3); CREATININE 0.9 mg/dL (0.4-1.0); TOTAL PROTEIN 7.4 g/dL (6.7-8.2)
[2020-04-09] MEDS ORDERED: SODIUM CHLORIDE 0.9% 1,000 ML IV STA (11:32)
--- NOTE | 2020-04-09 11:36 | ED Physician Documentation ---
History of Present Illness - Stated complaint Stated Complaint: HIGH BLOOD PRESSURE - Chief complaint Chief Complaint: Cardiac - History obtained from History obtained from: Patient - History of Present Illness Timing: How many weeks ago (2) - Additonal information Additional information: 79-year-old has gone in to get her teeth cleaned at her dentist 2 weeks ago and was found to be hypertensive. She started taking her blood pressure twice per day and she is noted that her blood pressure is been persistently elevated since then. She has developed some pain in her mid face as well some swelling consistent with what she is had previous with sinus infection. She has some headache associated with this. She has a history of thoracic aortic aneurysm that has been stable at 5 cm. She is not having pain in her chest and she is not having other specific symptoms. Review of Systems Constitutional: reports: Fatigue. denies: Fever Eyes: denies: Decreased vision Ears: reports: Ear pain Nose: reports: Congestion, Sinus pressure / pain. 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 : None HEENT: Other Psych: None Musculoskeletal: Osteoarthritis, Other Derm: Psoriasis Other Past Medical History: temperal arteritis - Past Surgical History Past Surgical History: Yes General: 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 /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: Hysterectomy HEENT: Tonsil/Adenoidectomy - Present Medications Home Medications: Ambulatory Orders Medication Instructions Recorded Confirmed lisinopriL [Lisinopril] 40 mg PO DAILY 09/08/17 04/09/20 diltiaZEM CD [Cardizem Cd] 180 mg PO DAILY #15 capsule 10/12/19 04/09/20 Metoprolol Tartrate 2 tab PO BID 04/09/20 04/09/20 - Allergies Allergies/Adverse Reactions: Allergies Allergy/AdvReac Type Severity Reaction Status Date / Time No Known Drug Allergies Allergy Verified 03/27/20 10:26 - Social History Does the pt smoke?: Yes Smoking Status: Former smoker Does the pt drink ETOH?: Yes Does the pt have substance abuse?: No - Immunizations Immunizations are current?: Yes - POLST Patient has POLST: No PD ED PE NORMAL - Vitals Vital signs reviewed: Yes (Hypertensive) - General General: Alert and oriented X 3, No acute distress, Well developed/nourished - HEENT HEENT: Atraumatic, PERRL, EOMI, Ears normal, Moist mucous membranes, Pharynx benign, Dentition benign, Other (There is tenderness to the maxillary sinuses bilaterally. 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, No motor deficit, No sensory deficit, Normal speech Eye Opening: Spontaneous Motor: Obeys Commands Verbal: Oriented GCS Score: 15 - Psych Psych: Normal mood, Normal affect Results - Vitals Vitals: Vital Signs - 24 hr 04/09/20 04/09/20 04/09/20 10:19 10:42 12:33 Temperature 36.6 C Heart Rate 76 73 72 Respiratory 16 14 16 Rate Blood Pressure 173/100 H 209/98 H 165/97 H O2 Saturation 98 97 99 04/09/20 13:31 Temperature Heart Rate 73 Respiratory 15 Rate Blood Pressure 164/95 H O2 Saturation 97 Oxygen O2 Source Room air - EKG (time done) 1037 Rate: Rate (enter#) (73) Rhythm: NSR Intervals: Prolonged [place] QRS: LVH Compare to prior EKG: Changed from prior EKG (SPT 01-05-2020 the IL interval has increased) Computer interpretation: Agree with computer - Labs Labs: Laboratory Tests 04/09/20 04/09/20 04/09/20 10:57 10:57 10:57 WBC 6.8 RBC 4.70 Hgb 13.8 Hct 41.7 MCV 88.7 MCH 29.4 MCHC 33.1 RDW 13.3 Plt Count 224 MPV 8.5 Neut # (Auto) 4.1 Lymph # (Auto) 1.9 [place] # (Auto) 0.6 Eos # (Auto) 0.2 Baso # (Auto) 0.0 Absolute Nucleated RBC 0.00 Nucleated RBC % 0.0 Sodium 136 Potassium 4.2 Chloride 103 Carbon Dioxide 24 Anion Gap 9.0 BUN 19 Creatinine 0.9 Estimated GFR (MDRD) 60 L Glucose 125 H Calcium 9.1 Total Bilirubin 0.7 AST 23 ALT 22 Alkaline Phosphatase 67 Troponin I High Sens 3.9 Total Protein 7.4 Albumin 3.9 Globulin 3.5 Albumin/Globulin Ratio 1.1 Lipase 34 Urine Color Urine Clarity Urine pH Ur Specific [place] Urine Protein Urine Glucose (UA) Urine Ketones Urine Occult Blood Urine Nitrite Urine Bilirubin Urine Urobilinogen Ur Leukocyte Esterase Ur Microscopic Review Urine Culture Comments 04/09/20 13:22 WBC RBC Hgb Hct MCV MCH MCHC RDW Plt Count MPV Neut # (Auto) Lymph # (Auto) [place] # (Auto) Eos # (Auto) Baso # (Auto) Absolute Nucleated RBC Nucleated RBC % Sodium Potassium Chloride Carbon Dioxide Anion Gap BUN Creatinine Estimated GFR (MDRD) Glucose Calcium Total Bilirubin AST ALT Alkaline Phosphatase Troponin I High Sens Total Protein Albumin Globulin Albumin/Globulin Ratio Lipase Urine Color LT. YELLOW Urine Clarity CLEAR Urine pH 5.5 Ur Specific [place] <=1.005 Urine Protein NEGATIVE Urine Glucose (UA) NEGATIVE Urine Ketones NEGATIVE Urine Occult Blood NEGATIVE Urine Nitrite NEGATIVE Urine Bilirubin NEGATIVE Urine Urobilinogen 0.2 (NORMAL) Ur Leukocyte Esterase NEGATIVE Ur Microscopic Review NOT INDICATED Urine Culture Comments NOT INDICATED - Rads (name of study) CT sinus screen Radiology: Prelim report reviewed (Impression: Unremarkable evaluation of the sinuses. No findings of acute or chronic sinusitis.), EMP read indepedently, See rad report Procedures - IVC sono (time) 1130 Bedside IVC sono: IVC measures (cm) (1.28), Dehydration (est <1 liter deficit.) PD MEDICAL DECISION MAKING - ED course Complexity details: reviewed results, re-evaluated patient, considered differential, d/w patient ED course: 79-year-old female with a history of hypertension is on her medications and hypertensive. She has a history of recurrent sinus infections and feels that she has some pressure in her face now. I found her symptoms to be subtle enough that empiric treatment with antibiotic is not indicated and I have ordered a screening CT sinus exam. She is also found to be mildly dehydrated on interrogation the inferior vena cava and saline is administered. Departure - Departure Disposition: 01 Home, Self Care Clinical Impression: Dehydration Hypertension Qualifiers: Hypertension type: essential hypertension Qualified Code(s): I10 - Essential (primary) hypertension Condition: Stable Instructions: ED Dehydration, ED HTN Established Follow-Up: Shabbir Paredes MD [Primary Care Provider] -
--- NOTE | 2020-04-09 12:24 | CT Report ---
PROCEDURE: Sinuses INDICATIONS: mid face swelling pain TECHNIQUE: Noncontrast 3.0 mm axial images acquired from the frontal sinuses to the mid-sella, with coronal and sagittal reformats. For radiation dose reduction, the following was used: automated exposure control , adjustment of mA and/or kV according to patient size. COMPARISON: None. FINDINGS: Image quality: Excellent. The bilateral frontal sinuses, anterior metatarsals, posterior ethmoid air cells, sphenoid sinuses, a nd maxillary sinuses are clear. No paranasal sinus wall thickening, hyperostosis, or sclerosis to sug gest chronic/recurrent sinusitis. There is no nasal cavity mass or abnormal nasal cavity opacificatio n. Left ml bullosa without opacification. S-shaped evaluation of the nasal septum without signifi cant spurring. Regional soft tissues unremarkable. Orbital structures are within normal limits. IMPRESSION: Unremarkable evaluation of the sinuses. No findings of acute or chronic sinusitis. Reviewed by: Magdaleno Gordon MD on 04/09/2020 12:23 PM PDT Approved by: Magdaleno Gordon MD on 04/09/2020 12:23 PM PDT Station ID: [id number]
[2020-04-09 13:31] LABS: BILIRUBIN,URINE NEGATIVE (NEGATIVE); GLUCOSE, URINE (UA) NEGATIVE (NEGATIVE); KETONES,URINE (UA) NEGATIVE (NEGATIVE); LEUKOCYTE ESTERASE, URINE NEGATIVE (NEGATIVE); NITRITE,URINE NEGATIVE (NEGATIVE); OCCULT BLOOD,URINE NEGATIVE (NEGATIVE); PH,URINE 5.5 PH (5.0-7.5); PROTEIN,URINE NEGATIVE (NEGATIVE); UROBILINOGEN,URINE 0.2 (NORMAL) E.U./dL (NORMAL)
[2020-04-09 13:32] LABS: CLARITY,URINE CLEAR (CLEAR)
[2020-04-09 13:33] VITALS: BP 164/95
== END 2020-04-09 13:55 | disposition home or self-care (01) ==
LOC: ED 10:12
DX: E86.0 Dehydration (principal); I10 Essential (primary) hypertension; R51 Headache; R09.81 Nasal congestion; I44.0 Atrioventricular block, first degree; I71.2 Thoracic aortic aneurysm, without rupture; Z87.891 Personal history of nicotine dependence
CPT/HCPCS: 36415; 70486; 71045; 80053; 81001; 81003; 83690; 84484; 85025; 87086; 93005; 96360; 96361; 99284

== ENCOUNTER 2020-04-11 09:31 | Outpatient (CLI) | payer MEDICARE, OTHER | END 2020-04-11 23:59 | disposition home or self-care (01) | LOC: LAB.WCP 09:31 | PROVIDERS: ATTEND Family Medicine | DX: E55.9 Vitamin D deficiency, unspecified (principal); M35.3 Polymyalgia rheumatica; M85.89 Other specified disorders of bone density and structure, multiple sites | CPT/HCPCS: 36415; 82306; 85651 ==

== ENCOUNTER 2020-05-24 08:00 | Outpatient (CLI) | payer MEDICARE, OTHER ==
[2020-05-24 11:43] LABS: CALCIUM 9.4 mg/dL (8.5-10.3); CREATININE 0.9 mg/dL (0.4-1.0)
== END 2020-05-24 23:59 | disposition home or self-care (01) ==
LOC: LAB.WCP 08:00
PROVIDERS: ATTEND Family Medicine
DX: I10 Essential (primary) hypertension (principal)
CPT/HCPCS: 36415; 80048

== ENCOUNTER 2020-08-05 12:00 | Outpatient (CLI) | payer MEDICARE, OTHER | END 2020-08-05 12:01 | disposition home or self-care (01) | LOC: COV 12:00 | PROVIDERS: ATTEND Ophthalmology | DX: Z01.812 Encounter for preprocedural laboratory examination (principal); H25.11 Age-related nuclear cataract, right eye; Z20.828 Contact with and (suspected) exposure to other viral communicable diseases ==

== ENCOUNTER 2020-08-08 09:15 | Day surgery (SDC) | payer MEDICARE, OTHER ==
[~2020-08-08 09:15] MED LIST changes: +BSS/LIDOCAINE/EPINEPHRINE 1 ML SYRINGE ONE; -CYCLOPENTOLATE 1% OPHTH DROPS 2 ML ONE; +EPINEPHrine 1 MG/ML AMP ONE; +TRIAMCIN/MOXIFLOX OPHTHALMIC 0.6 ML VIAL IO ONE; +VANCOMYCIN OPHTHALMI 8MG/0.8ML 8 MG/0.8 ML SYRINGE IO ONE
--- NOTE | 2020-08-08 09:56 | ANESTHESIA ---
Pre-Anesthesia VS, & Labs - Diagnosis R nuclear sclerotic cataract - Procedure Extraction R cataract w/IOL Height: 5 ft 6 in - Is Patient ?: No - Lab Results Lab results reviewed: Yes Home Medications and Allergies Home Medications: Ambulatory Orders Rosuvastatin Calcium 5 mg PO DAILY 08/07/20 amLODIPine [Norvasc] 5 mg PO DAILY 08/07/20 lisinopriL [Lisinopril] 40 mg PO DAILY 09/08/17 Metoprolol Tartrate 3 tab PO BID 04/09/20 Rosuvastatin Calcium 5 mg PO DAILY 08/07/20 amLODIPine [Norvasc] 5 mg PO DAILY 08/07/20 Allergies/Adverse Reactions: Allergies Allergy/AdvReac Type Severity Reaction Status Date / Time No Known Drug Allergies Allergy Verified 01/05/20 10:26 Anes History & Medical History - Anesthetic History Anesthesia Complications: reports: No previous complications - Medical History Cardiovascular: reports: Hypertension, Deep vein thrombosis, Other Pulmonary: reports: None Gastrointestinal: reports: Hepatitis (A, 40+ years ago) Urinary: reports: None Neuro: reports: None Musculoskeletal: reports: Osteoarthritis, Other Endocrine/Autoimmune: reports: None Blood Disorders: reports: None Skin: reports: Psoriasis Smoking Status: Former smoker - Surgical History General: 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 Eyes Ears Nose Throat (EENT): Cataracts, Tonsil/Adenoidectomy Gynecologic: Hysterectomy Exam General: Alert, Oriented x3 Dental: WNL Mouth Openin Fingerbreadth Neck Mobility: Normal Mallampati classification: III Respiratory: Lungs clear, Normal breath sounds Cardiovascular: Regular rate Neurological: Normal speech Mental/Cognitive Status: Alert/Oriented X3, Normal for patient Cognitive Status: Within normal limits Plan Anesthesia Type: MAC Consent for Procedure(s) Verified and Reviewed: Yes Code Status: Attempt Resuscitation ASA classification: 2-Mild systemic disease Is this case an emergency?: No
[2020-08-08] MEDS ORDERED: LACTATED RINGERS 500 ML IV ONE ×2 (10:01→10:53)
[2020-08-08] MEDS ORDERED: MIDAZOLAM 2 MG/2 ML VIAL IVP ONE (10:35)
[2020-08-08] MEDS ORDERED: EPINEPHrine 1 MG/ML AMP IR ONE (10:43)
[2020-08-08] MEDS ORDERED: BRIMONIDINE 0.2% OPHTH DROPS 5 ML OPTH ONE (10:43)
[2020-08-08] MEDS ORDERED: CHONDR SULF/HYALURONATE SYRINGE IO ONE (10:43)
[2020-08-08] MEDS ORDERED: BSS/LIDOCAINE/EPINEPHRINE 1 ML SYRINGE IO ONE (10:44)
[2020-08-08] MEDS ORDERED: PROPARACAINE 0.5% OPHTH DROPS 15 ML EACHEYE ONE (10:44)
[2020-08-08] MEDS ORDERED: TIMOLOL 0.5% OPHTH DROPS OPTH ONE (10:44)
[2020-08-08] MEDS ORDERED: TRIAMCIN/MOXIFLOX OPHTHALMIC 0.6 ML VIAL IO ONE (10:44)
[2020-08-08] MEDS ORDERED: VANCOMYCIN OPHTHALMI 8MG/0.8ML 8 MG/0.8 ML SYRINGE IO ONE (10:45)
[2020-08-08 11:15] VITALS: BP 143/66
--- NOTE | 2020-08-08 13:49 | ANESTHESIA POST OP EVALUATION ---
Anesthesia Post Eval - Post Anesthesia Eval Vitals: Last Vital Signs Temp 36.5 C 08/08/20 10:55 Pulse 64 08/08/20 11:14 Resp 18 08/08/20 11:14 BP 143/66 H 08/08/20 11:14 Pulse Ox 22 L 08/08/20 11:14 CV Function Including HR & BP: positive: Stable Pain Control: positive: Satisfactory Nausea & Vomiting: positive: Negative Mental Status: positive: Baseline Respiratory Status: Airway Patent Hydration Status: Satisfactory Anesthesia Complications: positive: None
--- NOTE | 2020-08-08 15:13 | OPERATIVE REPORT ---
DATE OF SERVICE: 08/08/2020 Physician: Kory Hernandez MD PREOPERATIVE DIAGNOSIS: Visually significant cataract, right eye. Cataract surgery was performed on the left eye on 09/09/2017. POSTOPERATIVE DIAGNOSIS: Visually significant cataract, right eye. Cataract surgery was performed o n the left eye on 09/09/2017. PROCEDURE: Phacoemulsification with posterior chamber intraocular lens implant, right eye. SURGEON: Kory Hernandez MD ANESTHESIA: Monitored anesthesia care. COMPLICATIONS: None. OPERATIVE INDICATIONS: This is an 80-year-old woman with progressive vision loss in the right eye du e to 3+ nuclear sclerotic and 1+ cortical cataract. Best corrected visual acuity was 20/40, with gla re to 20/70 in the right eye. Indications for surgery are overall decrease in vision, difficulty dri ving in low light or at night, difficulty driving at night because of headlights from other vehicles, and difficulty with glare or bright lights in any situation. She was consented at length concerning risks and benefits of cataract surgery, after which she expressed a desire to proceed with surgery. OPERATIVE PROCEDURE: The patient was taken to OR #3 and placed under monitored anesthesia care. A s urgical timeout was conducted confirming correct patient, correct procedure, and correct surgical sit e. She was given topical anesthesia, and prepped and draped in the usual sterile fashion. The eye w as entered at the 12 and 9 o'clock positions. Intracameral Shugarcaine was injected into the anterio r chamber, followed by Viscoat. A continuous-tear curvilinear capsulorrhexis was performed. The nuc leus was hydrodissected and phacoemulsified. The cortex was evacuated using automated infusion and a spiration. Provisc was injected in the capsular bag, and a 22.0 diopter intraocular lens was inserte d into the bag. Infusion and aspiration was used to evacuate the viscoelastic materials. The eye wa s inflated to physiologic pressure using balanced salt solution and found to be watertight. Approxim ately 0.25 mL of a mixture of triamcinolone and moxifloxacin was injected transsclerally into the vit reous and inferotemporal quadrant. An additional 0.55 mL of a mixture of triamcinolone, moxifloxacin , and vancomycin was injected subconjunctivally in the superior quadrant for infection and inflammati on prophylaxis. Wound integrity was checked with Weck-Amee sponges. Patient was taken from the Opera ting Room in good condition and given postoperative instructions. TD: 08/08/2020 11:02
== END 2020-08-08 09:16 | disposition home or self-care (01) ==
LOC: SDS 09:15
PROVIDERS: ATTEND Ophthalmology
DX: H25.11 Age-related nuclear cataract, right eye (principal); I10 Essential (primary) hypertension; Z98.42 Cataract extraction status, left eye; Z87.891 Personal history of nicotine dependence
CPT/HCPCS: 66984; A9270; J3490; J7120; V2632

== ENCOUNTER 2020-09-02 13:50 | Outpatient (CLI) | payer MEDICARE, OTHER ==
[2020-09-02 18:17] LABS: BASOPHILS % (AUTO) 0.4 %; EOSINOPHILS # (AUTO) 0.2 10^3/uL (0.0-0.7); EOSINOPHILS % (AUTO) 2.8 %; HGB - HEMOGLOBIN 13.2 g/dL (12.0-16.0); LYMPHOCYTES # (AUTO) 2.1 10^3/uL (1.5-3.5); LYMPHOCYTES % (AUTO) 29.7 %; MEAN CORPUSCULAR HEMOGLOBIN 30.3 pg (27.0-31.0); MEAN CORPUSCULAR HGB CONC 32.3 g/dL (32.0-36.0); MEAN CORPUSCULAR VOLUME 93.8 fL (81.0-99.0); MEAN PLATELET VOLUME 9.2 fL (7.9-10.8); MONOCYTES # (AUTO) 0.5 10^3/uL (0.0-1.0); MONOCYTES % (AUTO) 7.2 %; NEUTROPHILS # (AUTO) 4.3 10^3/uL (1.5-6.6); NEUTROPHILS % (AUTO) 59.3 %; PLT - PLATELET COUNT 233 10^3/uL (130-450); RED BLOOD COUNT 4.36 10^6/uL (4.20-5.40); RED CELL DISTRIBUTION WIDTH 13.3 % (12.0-15.0); WHITE BLOOD COUNT 7.2 x10^3/uL (4.8-10.8)
[2020-09-02 19:11] LABS: ALBUMIN 3.9 g/dL (3.2-5.5); ALBUMIN/GLOBULIN RATIO 1.1 (1.0-2.2); BILIRUBIN,TOTAL 0.5 mg/dL (0.2-1.0); CALCIUM 9.2 mg/dL (8.5-10.3); CREATININE 0.9 mg/dL (0.4-1.0); TOTAL PROTEIN 7.4 g/dL (6.7-8.2)
== END 2020-09-02 23:59 | disposition home or self-care (01) ==
LOC: LAB.WCP 13:50
PROVIDERS: ATTEND Internal Medicine
DX: I71.2 Thoracic aortic aneurysm, without rupture (principal); I10 Essential (primary) hypertension; I48.92 Unspecified atrial flutter; M35.3 Polymyalgia rheumatica
CPT/HCPCS: 36415; 80053; 84443; 85025; 85651

== ENCOUNTER 2021-06-21 08:00 | Outpatient (CLI) | payer MEDICARE, OTHER ==
--- NOTE | 2021-06-21 15:42 | XRAY Report ---
PROCEDURE: Chest 2 View X-Ray INDICATIONS: RIB PAIN TECHNIQUE: 2 view(s) of the chest. COMPARISON: CXR 04/09/2020. CT pulmonary angiogram 01/05/2020. FINDINGS: Surgical changes and devices: None. Lungs and pleura: No pleural effusions or pneumothorax. Lungs are clear. Mediastinum: Mediastinal contours are normal. Heart size is normal. Bones and chest wall: No suspicious bony abnormalities. Intraosseous hemangioma at L1. Soft tissues appear unremarkable. IMPRESSION: No acute cardiopulmonary abnormality. Reviewed by: Santhosh Joseph MD on 06/21/2021 2:40 PM [facility] Approved by: Santhosh Joseph MD on 06/21/2021 2:40 PM [facility] Station ID: [id number]
== END 2021-06-21 23:59 | disposition home or self-care (01) ==
LOC: DI.S 08:00
PROVIDERS: ATTEND Nurse Practitioner
DX: R07.81 Pleurodynia (principal)

== ENCOUNTER 2021-06-21 15:09 | Emergency (ER) | payer MEDICARE, OTHER ==
--- NOTE | 2021-06-21 15:33 | ED Physician Documentation ---
History of Present Illness - Stated complaint Stated Complaint: LEFT SIDE PX - Chief complaint Chief Complaint: Back Pain - Additonal information Additional information: This is a rather well-appearing 80-year-old female that was referred to the emergency department for evaluation of focal left upper posterior thoracic back pain. The patient reports that yesterday evening she began to notice an ache, that she describes more as a nuisance on her left upper back. It certainly worse with movements and it can hurt worse when she takes a deep breath however she denies chest pain or shortness of air. It was severe enough that she went t o walk-in clinic where an EKG and chest x-ray were performed without worrisome findings. Patient was thus advised to come to the ER for further evaluation. pt denies cough, fevers. no falls, trauma or new activities. No hx of similar in the past Patient reports to me a history of hypertension as well as an aortic enlargement for which she is followed by Dr. Lynne arborist representative with [facility] and Dr. Hernandez cardiothoracic surgeon at [facility] in [place]. Review of Systems Constitutional: denies: Fever, Chills Eyes: reports: Reviewed and negative Ears: reports: Reviewed and negative Nose: reports: Reviewed and negative Throat: reports: Reviewed and negative Cardiac: reports: Pedal edema. 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: Hysterectomy HEENT: Tonsil/Adenoidectomy - Present Medications Home Medications: Ambulatory Orders Medication Instructions Recorded Confirmed lisinopriL [Lisinopril] 40 mg PO DAILY 09/08/17 06/21/21 Metoprolol Tartrate 3 tab PO BID 04/09/20 06/21/21 Rosuvastatin Calcium 5 mg PO DAILY 08/07/20 06/21/21 amLODIPine [Norvasc] 5 mg PO DAILY 08/07/20 06/21/21 methocarbamoL [Methocarbamol] 750 mg PO BID PRN #15 tablet 06/21/21 - Allergies Allergies/Adverse Reactions: Allergies Allergy/AdvReac Type Severity Reaction Status Date / Time No Known Drug Allergies Allergy Verified 06/21/21 15:16 - Social History Does the pt smoke?: Yes Smoking Status: Former smoker Does the pt drink ETOH?: Yes Does the pt have substance abuse?: No - Immunizations Immunizations are current?: Yes - POLST Patient has POLST: No PD ED PE EXPANDED - General General: Alert, No acute distress - Cardiac Cardiac: Regular Rate, Murmur Present, Radial strong equal, Pedal strong equal, Cap refill < 2 sec, Other (focal left lateral posterior throacic back tenderness. No swelling, erythema or rash) - Respiratory Respiratory: No: Distress, Labored - Abdomen Abdomen: Normal Bowel sounds. No: Tender to palpation - Back Back: Normal exam, Soft tissue tenderness (focal left lateral thoracic tender ness). No: Vertebral tenderness - Neuro Neuro: Alert and Oriented X 3, CNII-XII intact - GCS Eye Opening: Spontaneous Motor: Obeys Commands Verbal: Oriented Total: 15 Results - Vitals Vitals: Vital Signs - 24 hr 06/21/21 06/21/21 06/21/21 15:13 15:47 16:47 Temperature 36.1 C L Heart Rate 83 73 85 Respiratory 22 18 28 H Rate Blood Pressure 184/88 H 173/84 H 139/83 H O2 Saturation 96 97 97 Oxygen O2 Source Room air - EKG (time done) 1531 Rate: Rate (enter#) Rhythm: NSR [place]: Normal Intervals: Normal [place] QRS: Poor R wave progression Ischemia: Normal ST segments Compare to prior EKG: Old EKG unavailable Computer interpretation: Agree with computer - Labs Labs: Laboratory Tests 06/21/21 06/21/21 06/21/21 15:42 15:42 15:42 WBC 6.3 RBC 4.45 Hgb 13.4 Hct 40.6 MCV 91.2 MCH 30.1 MCHC 33.0 RDW 13.0 Plt Count 205 MPV 8.6 Neut # (Auto) 3.9 Lymph # (Auto) 1.7 [place] # (Auto) 0.4 Eos # (Auto) 0.2 Baso # (Auto) 0.0 Absolute Nucleated RBC 0.00 Nucleated RBC % 0.0 Sodium 136 Potassium 3.9 Chloride 99 L Carbon Dioxide 25 Anion Gap 12.0 BUN 16 Creatinine 0.9 Estimated GFR (MDRD) 60 L Glucose 226 H Calcium 9.2 Total Bilirubin 0.8 AST 31 ALT 33 Alkaline Phosphatase 78 Troponin I High Sens 4.0 Total Protein 7.7 Albumin 4.1 Globulin 3.6 Albumin/Globulin Ratio 1.1 Lipase 37 - Rads (name of study) CXR Radiology: Final report received (No acute cardiopulmonary abnormality) Procedures - General procedure General procedure: Trigger point injection: Left lower lateral thoracic at approximately T6. Injected with 4 cc of sterile 1% saline in a sterile fashion. PD MEDICAL DECISION MAKING - ED course Complexity details: reviewed results, considered differential, d/w patient ED course: This is an 80-year-old female that presents emergency department for evaluation of very focal left posterior thoracic back pain that began yesterday. It is quite reproducible in one area of her lateral rhomboid. Chest x-ray does not show acute pathology. Screening EKG is nonischemic as well as high-sensitivity troponin. She does have a history of an aortic aneurysm but the exam is not consistent with concern for dissection. Patient was given a 4 cc lidocaine trigger point injection which nearly fully resolved her of her symptoms. She will be discharged with a limited prescription for a muscle relaxer and emergent return precautions were discussed. Departure - Departure Disposition: 01 Home, Self Care Clinical Impression: Rhomboid pain Acute thoracic back pain Qualifiers: Back pain laterality: left Qualified Code(s): M54.6 - Pain in thoracic spine Condition: Stable Record reviewed to determine appropriate education?: Yes Prescriptions: methocarbamoL [Methocarbamol] 750 mg PO BID PRN #15 tablet PRN Reason: Spasms Comments: Kristian you were seen in the emergency department today for pain in your left thoracic back. You had some spasm in your rhomboid muscle. I did give you a lidocaine injection into the point where you are most painful. This is called a trigger point injection and it seems to have relieved you have this pain. We also gave you a one-time dose of an oral steroid that should help reduce the spasm and inflammation I do recommend that you ice the area and gently stretch and move as much as possible. You can continue to take Tylenol and ibuprofen at home for pain. I am prescribing a limited amount of a muscle relaxer. Please discuss this ED visit with your primary care provider. If at any point you develop chest pain, have shortness of air or feel that the symptoms are not improving then please return immediately to the ER.
--- NOTE | 2021-06-21 15:39 | XRAY Report ---
PROCEDURE: Chest 1 View X-Ray INDICATIONS: Chest Pain TECHNIQUE: One view of the chest was acquired. COMPARISON: CXR earlier today, 04/09/2020. FINDINGS: Surgical changes and devices: None. Lungs and pleura: No pleural effusions or pneumothorax. Lungs are clear. Mediastinum: Mediastinal contours appear normal. Heart size is normal. Bones and chest wall: No suspicious bony lesions. Overlying soft tissues appear unremarkable. IMPRESSION: No acute cardiopulmonary abnormality. Reviewed by: Santhosh Joseph MD on 06/21/2021 2:38 PM DEYANIRA Approved by: Santhosh Joseph MD on 06/21/2021 2:38 PM AKVIMAL Station ID: [id number]
[2021-06-21 15:54] LABS: BASOPHILS % (AUTO) 0.6 %; EOSINOPHILS # (AUTO) 0.2 10^3/uL (0.0-0.7); EOSINOPHILS % (AUTO) 3.2 %; HCT - HEMATOCRIT 40.6 % (37.0-47.0); HGB - HEMOGLOBIN 13.4 g/dL (12.0-16.0); LYMPHOCYTES # (AUTO) 1.7 10^3/uL (1.5-3.5); LYMPHOCYTES % (AUTO) 27.4 %; MEAN CORPUSCULAR HEMOGLOBIN 30.1 pg (27.0-31.0); MEAN CORPUSCULAR VOLUME 91.2 fL (81.0-99.0); MEAN PLATELET VOLUME 8.6 fL (7.9-10.8); MONOCYTES # (AUTO) 0.4 10^3/uL (0.0-1.0); MONOCYTES % (AUTO) 6.7 %; NEUTROPHILS # (AUTO) 3.9 10^3/uL (1.5-6.6); NEUTROPHILS % (AUTO) 61.6 %; PLT - PLATELET COUNT 205 10^3/uL (130-450); RED BLOOD COUNT 4.45 10^6/uL (4.20-5.40); WHITE BLOOD COUNT 6.3 x10^3/uL (4.8-10.8)
[2021-06-21 16:05] LABS: ALBUMIN 4.1 g/dL (3.2-5.5); ALBUMIN/GLOBULIN RATIO 1.1 (1.0-2.2); BILIRUBIN,TOTAL 0.8 mg/dL (0.2-1.0); CALCIUM 9.2 mg/dL (8.5-10.3); CREATININE 0.9 mg/dL (0.4-1.0); POTASSIUM 3.9 mmol/L (3.5-5.0); TOTAL PROTEIN 7.7 g/dL (6.7-8.2)
[2021-06-21] MEDS ORDERED: HYDROmorphone 1 MG/ML CARPUJECT IVP STA (16:10)
[2021-06-21] MEDS ORDERED: LIDOCAINE 1% 2 ML VIAL SUBQ STA (16:15)
[2021-06-21] MEDS ORDERED: DEXAMETHASONE 10 MG/ML VIAL PO STA (17:16)
[2021-06-21] MEDS ORDERED: CHERRY SYRUP 10 ML UDC PO ONE (17:16)
[2021-06-21 17:33] VITALS: BP 109/66
== END 2021-06-21 17:33 | disposition home or self-care (01) ==
LOC: ED 15:09
DX: M79.18 Myalgia, other site (principal); M54.6 Pain in thoracic spine; Z87.891 Personal history of nicotine dependence; R07.81 Pleurodynia
CPT/HCPCS: 20552; 36415; 71045; 71046; 80053; 83690; 84484; 85025; 93005; 96374; 99284; A9270; J1170

== ENCOUNTER 2021-08-20 07:22 | Outpatient (CLI) | payer MEDICARE, OTHER ==
[2021-08-20 07:58] LABS: ALBUMIN 3.8 g/dL (3.2-5.5); ALBUMIN/GLOBULIN RATIO 1.2 (1.0-2.2); ALKALINE PHOSPHATASE 86 IU/L (42-121); ALT ALANINE AMINOTRANSFERASE 31 IU/L (10-60); AST ASPARTATE AMINOTRANSFERASE 23 IU/L (10-42); BILIRUBIN,TOTAL 1.2 mg/dL (0.2-1.0); BUN - BLOOD UREA NITROGEN 15 mg/dL (6-20); CALCIUM 9.3 mg/dL (8.5-10.3); CARBON DIOXIDE - CO2 22 mmol/L (21-32); CHLORIDE 101 mmol/L (101-111); CHOL/HDL RATIO 5.6 (<4.4); CHOLESTEROL 179 mg/dL; CREATININE 0.9 mg/dL (0.4-1.0); GFR - MDRD 60 (>89); GLUCOSE 320 mg/dL (70-100); HDL CHOLESTEROL 32 mg/dL; LDL CHOLESTEROL,CALCULATED 69 mg/dL; LDL/HDL RATIO 2.2 (<4.4); POTASSIUM 3.9 mmol/L (3.5-5.0); SODIUM 135 mmol/L (135-145); TOTAL PROTEIN 7.1 g/dL (6.7-8.2); TRIGLYCERIDES 390 mg/dL; VLDL CHOLESTEROL 78 mg/dL
== END 2021-08-20 07:23 | disposition home or self-care (01) ==
LOC: LAB 07:22
PROVIDERS: ATTEND Internal Medicine Cardiovascular Disease
DX: E78.5 Hyperlipidemia, unspecified (principal)
CPT/HCPCS: 36415; 80053; 80061; 83721

== ENCOUNTER 2021-09-28 08:39 | Outpatient (CLI) | payer MEDICARE, OTHER ==
--- NOTE | 2021-09-28 14:55 | CT Report ---
PROCEDURE: Sinuses INDICATIONS: CHRONIC SINUS CONJESTION TECHNIQUE: Noncontrast 3.0 mm axial images acquired from the frontal sinuses to the mid-sella, with coronal and sagittal reformats. For radiation dose reduction, the following was used: automated exposure control , adjustment of mA and/or kV according to patient size. COMPARISON: None. FINDINGS: Image quality: Excellent. Maxillary Sinuses: No bony remodeling or destruction. Sinuses are clear. Ethmoid Air Cells: No bony remodeling or destruction. Sinuses are clear. Sphenoid Sinuses: No bony remodeling or destruction. Sinuses are clear. Frontal Sinuses: No bony remodeling or destruction. Sinuses are clear. Ostiomeatal Complexes: Ostiomeatal complexes are patent. No Madina cells. Miscellaneous: Visualized intra-orbital contents are normal. There is a left ml bullosa of the m iddle turbinate. Mild S-shaped nasal septum without spurring. IMPRESSION: 1. No acute or chronic sinusitis. 2. Left ml bullosa without opacification. Reviewed by: Delio Dave on 09/28/2021 1:54 PM [facility] Approved by: Delio Dave on 09/28/2021 1:54 PM [facility] Station ID: [id number]
== END 2021-09-28 08:40 | disposition home or self-care (01) ==
LOC: DI 08:39
PROVIDERS: ATTEND Internal Medicine
DX: J32.0 Chronic maxillary sinusitis (principal)

== ENCOUNTER 2021-10-15 13:06 | Outpatient (CLI) | payer MEDICARE, OTHER ==
--- NOTE | 2021-10-16 08:38 | Mammography Report ---
BILATERAL DIGITAL SCREENING MAMMOGRAM 3D/2D: 10/15/2021 CLINICAL: Routine screening. Comparison is made to exams dated: 07/12/2018 mammogram, 09/30/2015 mammogram, and 05/03/2012 mammogra m - [facility]. There are scattered fibroglandular elements in both breasts. No significant masses, calcifications, or other findings are seen in either breast. There has been no significant interval change. IMPRESSION: NEGATIVE There is no mammographic evidence of malignancy. A 1 year screening mammogram is recommended. This exam was interpreted at Station ID: [id number]. NOTE: For mammograms, a report in lay terms will be sent to the patient. Approximately 15% of breast malignancies will not be visualized mammographically. In the management of a palpable breast mass, a negative mammogram must not discourage biopsy of a clinically suspicious lesion. Electronically Signed By: Nasir Alfaro M.D. ar/[email or web address]:10/15/2021 15:04:26 ACR BI-RADS Category 1: Negative 3341F PARENCHYMAL PATTERN: (A) - The breast(s) demonstrate(s) scattered fibroglandular densities. BI-RADS CATEGORY: (1) - 1 RECOMMENDATION: (ANNUAL) - Recommend routine annual screening mammography. [id number] 1 year screening LATERALITY: (B)
== END 2021-10-15 13:07 | disposition home or self-care (01) ==
LOC: DI 13:06
PROVIDERS: ATTEND Internal Medicine
DX: Z12.31 Encounter for screening mammogram for malignant neoplasm of breast (principal)

== ENCOUNTER 2022-02-24 07:17 | Outpatient (CLI) | payer OTHER ==
[2022-02-24 07:48] LABS: ALBUMIN 3.7 g/dL (3.2-5.5); ALBUMIN/GLOBULIN RATIO 0.9 (1.0-2.2); ALKALINE PHOSPHATASE 90 IU/L (42-121); ALT ALANINE AMINOTRANSFERASE 32 IU/L (10-60); AST ASPARTATE AMINOTRANSFERASE 27 IU/L (10-42); BUN - BLOOD UREA NITROGEN 21 mg/dL (6-20); CARBON DIOXIDE - CO2 25 mmol/L (21-32); CHLORIDE 97 mmol/L (101-111); CHOL/HDL RATIO 6.3 (<4.4); CHOLESTEROL 202 mg/dL; CREATININE 0.9 mg/dL (0.4-1.0); GFR - MDRD 60 (>89); GLUCOSE 288 mg/dL (70-100); HDL CHOLESTEROL 32 mg/dL; SODIUM 134 mmol/L (135-145); TOTAL PROTEIN 7.7 g/dL (6.7-8.2); TRIGLYCERIDES 579 mg/dL
[2022-02-24 08:34] LABS: LDL CHOLESTEROL,DIRECT 68 mg/dL; LDLD/HDL RATIO 2.1 (<4.4)
== END 2022-02-24 07:18 | disposition home or self-care (01) ==
LOC: LAB 07:17
PROVIDERS: ATTEND Internal Medicine Cardiovascular Disease
DX: E78.5 Hyperlipidemia, unspecified (principal); I10 Essential (primary) hypertension
CPT/HCPCS: 36415; 80053; 80061; 83721

== ENCOUNTER 2022-06-22 08:00 | Outpatient (CLI) | payer OTHER ==
[2022-06-22 15:52] LABS: CALCIUM 9.6 mg/dL (8.5-10.3); CREATININE 0.9 mg/dL (0.4-1.0)
[2022-06-22 21:29] LABS: ESTIMATED AVERAGE GLUCOSE 174 mg/dL (70-100); HEMOGLOBIN A1c% 7.7 % (4.27-6.07)
== END 2022-06-22 23:59 | disposition home or self-care (01) ==
LOC: LAB.R 08:00
PROVIDERS: ATTEND Internal Medicine
DX: E11.9 Type 2 diabetes mellitus without complications (principal); Z79.899 Other long term (current) drug therapy
CPT/HCPCS: 36415; 80048; 83036

== ENCOUNTER 2022-10-26 08:03 | Emergency (ER) | payer OTHER ==
--- NOTE | 2022-10-26 08:51 | XRAY Report ---
PROCEDURE: Shoulder 3 View RT INDICATIONS: trauma TECHNIQUE: 3 views of the shoulder were acquired. COMPARISON: None. FINDINGS: Bones: No fractures or dislocations. No suspicious bony lesions. Visualized ribs appear intact. Soft tissues: No suspicious soft tissue calcifications. IMPRESSION: No acute radiographic findings. If pain persists, consider repeat imaging in 5-7 days to exclude occult fracture. Reviewed by: Mariam Aponte MD on 10/26/2022 8:50 AM [facility] Approved by: Mariam Aponte MD on 10/26/2022 8:50 AM [facility] Station ID: [id number]
--- NOTE | 2022-10-26 09:08 | ED Physician Documentation ---
PD HPI UPPER EXT INJURY - Stated complaint Stated Complaint: R SHOULDER PX - Chief complaint Chief Complaint: Trauma Ext - History obtained from History obtained from: Patient - History of Present Illness Location: Right, Shoulder Type of injury: Fall Where injury occurred: Other (airport) Timing - onset: How many days ago (3) Timing - duration: Days (3) Timing - details: Abrupt onset, Still present Improved by: Rest, Immobilization Worsened by: Moving, Palpating Associated symptoms: Swelling, Discolored. No: Weakness, Numbness, Tingling Similar symptoms before: Has not had sx before Recently seen: Other - Additonal information Additional information: 82-year-old Florian Isabel was on her way down and escalator when she got close to the bottom she fell forward striking the right side of her forehead and her right shoulder. Her right shoulder took the brunt of the fall. She is complaining of pain to the right shoulder and a reduced range of mobility. She denies any loss of consciousness with the fall she denies any pain to her neck she denies any nausea difficulty concentrating or dizziness or lightheadedness. She is not on anticoagulation. 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 : None HEENT: Other Psych: None Musculoskeletal: Osteoarthritis, Other Derm: Psoriasis - Past Surgical History Past Surgical History: Yes General: 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 /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: Hysterectomy HEENT: Tonsil/Adenoidectomy - Present Medications Home Medications: Ambulatory Orders Medication Instructions Recorded Confirmed lisinopriL [Lisinopril] 40 mg PO DAILY 09/08/17 06/21/21 Metoprolol Tartrate 3 tab PO BID 04/09/20 06/21/21 Rosuvastatin Calcium 5 mg PO DAILY 08/07/20 06/21/21 amLODIPine [Norvasc] 5 mg PO DAILY 08/07/20 06/21/21 methocarbamoL [Methocarbamol] 750 mg PO BID PRN #15 tablet 06/21/21 - Allergies Allergies/Adverse Reactions: Allergies Allergy/AdvReac Type Severity Reaction Status Date / Time No Known Drug Allergies Allergy Verified 10/26/22 08:17 - Social History Does the pt smoke?: Yes Smoking Status: Former smoker Does the pt drink ETOH?: Yes Does the pt have substance abuse?: No - Immunizations Immunizations are current?: Yes - POLST Patient has POLST: No PD ED PE NORMAL - Vitals Vital signs reviewed: Yes (hypertensive ) - General General: Alert and oriented X 3, No acute distress, Well developed/nourished - HEENT HEENT: PERRL, EOMI, Other (There is ecchymosis to the anterolateral right forehead. No crepitance or step off. No zygomatic pain and no evidence of entrapment. ) - Neck Neck: Supple, no meningeal sign, No bony TTP - Respiratory Respiratory: No respiratory distress - Back Back: No CVA TTP, No spinal TTP - Derm Derm: Normal color, Warm and dry, No rash - Extremities Extremities: No deformity, Other (There is ecchymosis to the right shoulder anterior and lateral with reduced ROM. She is able to get to about 45 degrees abduction. Rotation does not appear affected. distal nv intact. 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 If pain persist, consider repeat imaging in 5 to 7 days to exclude occult fracture.), EMP read indepedently PD Medical Decision Making - ED course Complexity details: reviewed old records, reviewed results, re-evaluated patient, considered differential, d/w patient ED course: 82-year-old female with a fall off of an escalator has injured the right side of her forehead and her right shoulder. She does not have any evidence of a concussion or facial fracture on examination. She does not have any pain to her neck. She is not on anticoagulation. X-ray examination of the shoulder is obtained and she does not have any evidence of a fracture. She has reduced range of motion and pain. We have placed her into a sling and administered a dose of dexamethasone. She is instructed to take ibuprofen or Aleve for pain with food as needed. She is instructed in the importance of range of motion daily. I have asked her to follow-up with the orthopedic surgeon for potential physical therapy. Departure - Departure Disposition: 01 Home, Self Care Clinical Impression: Sprain of right shoulder Qualifiers: Encounter type: initial encounter Shoulder sprain type: unspecified sprain Qualified Code(s): S43.401A - Unspecified sprain of right shoulder joint, initial encounter Contusion of forehead Qualifiers: Encounter type: initial encounter Qualified Code(s): S00.83XA - Contusion of other part of head, initial encounter Condition: Stable Instructions: Exercise Shoulder Pendulum, ED Head Injury Closed, ED Sprain Chhaya ulder Follow-Up: Nick Zimmerman MD [Provider Admit Priv/Credential] - Sita Reed MD [Primary Care Provider] - Comments: Lalo, today it looks like you have sprained your shoulder and have reduced range of motion. The recommendation is to take your arm out of the sling at least 3-4 times per day and do the exercises for improving range of motion. This can take several months to regain the complete range of motion. Physical therapy is indicated and a follow-up with the orthopedic doctor is indicated. Discharge Date/Time: 10/26/22 10:09
[2022-10-26] MEDS ORDERED: CHERRY SYRUP 10 ML UDC PO ONE (09:18)
[2022-10-26] MEDS ORDERED: DEXAMETHASONE 10 MG/ML VIAL PO STA (09:18)
[2022-10-26 10:09] VITALS: BP 150/76
== END 2022-10-26 10:09 | disposition home or self-care (01) ==
LOC: ED 08:03
DX: S43.401A Unspecified sprain of right shoulder joint, initial encounter (principal); S00.83XA Contusion of other part of head, initial encounter; W10.0XXA Fall (on)(from) escalator, initial encounter; I10 Essential (primary) hypertension; Z87.891 Personal history of nicotine dependence
CPT/HCPCS: 73030; 99283; A9270

== ENCOUNTER 2023-09-30 08:42 | Outpatient (CLI) | payer OTHER ==
[2023-09-30 09:12] LABS: ALBUMIN 4.1 g/dL (3.2-5.5); ALBUMIN/GLOBULIN RATIO 1.3 (1.0-2.2); ALKALINE PHOSPHATASE 64 IU/L (42-121); ALT ALANINE AMINOTRANSFERASE 16 IU/L (10-60); AST ASPARTATE AMINOTRANSFERASE 15 IU/L (10-42); BILIRUBIN,TOTAL 0.7 mg/dL (0.2-1.0); BUN - BLOOD UREA NITROGEN 15 mg/dL (6-20); CALCIUM 9.3 mg/dL (8.5-10.3); CARBON DIOXIDE - CO2 28 mmol/L (21-32); CHLORIDE 104 mmol/L (101-111); CHOL/HDL RATIO 5.9 (<4.4); CHOLESTEROL 201 mg/dL; CREATININE 0.9 mg/dL (0.6-1.3); GFR - MDRD 60 (>89); GLUCOSE 167 mg/dL (74-104); HDL CHOLESTEROL 34 mg/dL; LDL CHOLESTEROL,CALCULATED 101 mg/dL; SODIUM 138 mmol/L (135-145); TOTAL PROTEIN 7.2 g/dL (6.4-8.9); TRIGLYCERIDES 329 mg/dL (48-352); VLDL CHOLESTEROL 66 mg/dL
[2023-09-30 09:25] LABS: THYROID STIMULATING HORMONE 1.66 uIU/mL (0.34-5.60)
== END 2023-09-30 08:43 | disposition home or self-care (01) ==
LOC: LAB 08:42
PROVIDERS: ATTEND Internal Medicine Cardiovascular Disease
DX: I10 Essential (primary) hypertension (principal); E78.5 Hyperlipidemia, unspecified
CPT/HCPCS: 36415; 80053; 80061; 83721; 83735; 84443

== ENCOUNTER 2023-11-15 09:13 | Outpatient (CLI) | payer OTHER ==
[2023-11-15 09:39] LABS: BASOPHILS % (AUTO) 0.7 %; EOSINOPHILS # (AUTO) 0.1 10^3/uL (0.0-0.7); HCT - HEMATOCRIT 37.8 % (37.0-47.0); HGB - HEMOGLOBIN 12.6 g/dL (12.0-16.0); LYMPHOCYTES # (AUTO) 1.6 10^3/uL (1.5-3.5); LYMPHOCYTES % (AUTO) 26.7 %; MEAN CORPUSCULAR HEMOGLOBIN 30.4 pg (27.0-31.0); MEAN CORPUSCULAR HGB CONC 33.3 g/dL (32.0-36.0); MEAN CORPUSCULAR VOLUME 91.1 fL (81.0-99.0); MEAN PLATELET VOLUME 8.7 fL (7.9-10.8); MONOCYTES # (AUTO) 0.5 10^3/uL (0.0-1.0); MONOCYTES % (AUTO) 8.6 %; NEUTROPHILS # (AUTO) 3.7 10^3/uL (1.5-6.6); NEUTROPHILS % (AUTO) 61.5 %; PLT - PLATELET COUNT 166 10^3/uL (130-450); RED BLOOD COUNT 4.15 10^6/uL (4.20-5.40); RED CELL DISTRIBUTION WIDTH 13.4 % (12.0-15.0)
[2023-11-15 10:03] LABS: BILIRUBIN,URINE NEGATIVE (NEGATIVE); GLUCOSE, URINE (UA) >=1000 mg/dL (NEGATIVE); KETONES,URINE (UA) TRACE mg/dL (NEGATIVE); LEUKOCYTE ESTERASE, URINE NEGATIVE (NEGATIVE); NITRITE,URINE POSITIVE (NEGATIVE); OCCULT BLOOD,URINE TRACE-INTA (NEGATIVE); PROTEIN,URINE 30 mg/dL (NEGATIVE); UROBILINOGEN,URINE 0.2 (NORMAL) E.U./dL (NORMAL)
[2023-11-15 10:07] LABS: CLARITY,URINE HAZY (CLEAR)
[2023-11-15 10:19] LABS: BACTERIA,URINE Many /HPF (None Seen); CASTS, URINE 0-2 Course Granular /LPF; RBC,URINE 0-5 /HPF (0-5); SQUAMOUS EPITHELIAL CELL,UR FEW Squamous (<= Few); WBC CLUMPS,URINE PRESENT; WBC,URINE >25 /HPF (0-5)
[2023-11-15 10:19] LABS: ALBUMIN 3.6 g/dL (3.2-5.5); ALBUMIN/GLOBULIN RATIO 1.4 (1.0-2.2); ALKALINE PHOSPHATASE 60 IU/L (42-121); ALT ALANINE AMINOTRANSFERASE 28 IU/L (10-60); AST ASPARTATE AMINOTRANSFERASE 17 IU/L (10-42); BILIRUBIN,TOTAL 0.8 mg/dL (0.2-1.0); BUN - BLOOD UREA NITROGEN 7 mg/dL (6-20); CARBON DIOXIDE - CO2 25 mmol/L (21-32); CHLORIDE 101 mmol/L (101-111); CHOLESTEROL 222 mg/dL; CREATININE 0.7 mg/dL (0.6-1.3); CRP - C-REACTIVE PROTEIN 2.8 mg/dL (<0.5); GFR - MDRD 80 (>89); GLUCOSE 331 mg/dL (74-104); HDL CHOLESTEROL 37 mg/dL; POTASSIUM 3.8 mmol/L (3.5-4.5); SODIUM 136 mmol/L (135-145); TOTAL PROTEIN 6.2 g/dL (6.4-8.9); TRIGLYCERIDES 498 mg/dL (48-352)
[2023-11-15 10:25] LABS: CREATININE,URINE 154.3 mg/dL; MICROALBUM/CREATININE RATIO,UR 49.9 ug/mg (<30.0); MICROALBUMIN,URINE 7.7 mg/dL
[2023-11-15 10:51] LABS: LDL CHOLESTEROL,DIRECT 98 mg/dL (75-193); LDLD/HDL RATIO 2.6 (<4.4)
[2023-11-15 11:28] LABS: ESTIMATED AVERAGE GLUCOSE 312 mg/dL (70-100); HEMOGLOBIN A1c% 12.5 % (4.27-6.07)
== END 2023-11-15 09:14 | disposition home or self-care (01) ==
LOC: LAB 09:13
PROVIDERS: ATTEND Internal Medicine
DX: Z00.00 Encounter for general adult medical examination without abnormal findings (principal); E11.9 Type 2 diabetes mellitus without complications; M31.6 Other giant cell arteritis; R51.9 Headache, unspecified; I10 Essential (primary) hypertension; E78.1 Pure hyperglyceridemia; K62.5 Hemorrhage of anus and rectum; J31.0 Chronic rhinitis; R09.81 Nasal congestion; Z79.899 Other long term (current) drug therapy; H54.7 Unspecified visual loss; R32 Unspecified urinary incontinence
CPT/HCPCS: 36415; 80053; 80061; 81001; 82043; 82570; 83036; 83721; 84443; 85025; 85651; 86140; 87077; 87086; 87181

== ENCOUNTER 2023-11-21 10:14 | Emergency (ER) | payer MEDICARE, OTHER ==
--- NOTE | 2023-11-21 11:06 | ED Physician Documentation ---
PD HPI LOWER EXT INJURY - Stated complaint Stated Complaint: RT LEG SWELLING/SORE - Chief complaint Chief Complaint: Ext Problem - History obtained from History obtained from: Patient - Additional information Additional information: Remote history of DVT after an injury, not currently anticoagulated. She has an area of pain, redness, and swelling in the posteromedial right knee that is been there for about 3 days without injury. No fevers or chills. 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 HEENT: Tonsil/Adenoidectomy - Present Medications Home Medications: Ambulatory Orders Medication Instructions Recorded Confirmed lisinopriL [Lisinopril] 40 mg PO DAILY 09/08/17 11/21/23 Metoprolol Tartrate 75 mg PO BID 04/09/20 11/21/23 Rosuvastatin Calcium 5 mg PO DAILY 08/07/20 11/21/23 amLODIPine [Norvasc] 5 mg PO BID 08/07/20 11/21/23 Apixaban [Eliquis] 1 tab PO BID 45 Days #90 tablet 11/21/23 Aspirin EC [Ecotrin] 81 mg PO DAILY 11/21/23 11/21/23 Chlorthalidone 25 mg ORAL DAILY 11/21/23 11/21/23 Potassium Chloride [Klor-Con M10] 10 meq PO DAILY 11/21/23 11/21/23 Vit A/Vit C/Vit E/Zinc/Copper 1 each PO DAILY 11/21/23 11/21/23 [Preservision Areds Softgel] cephALEXin [Keflex] 500 mg PO BID 11/21/23 11/21/23 flaxseed oiL [Flaxseed Oil] 1,000 mg PO DAILY 11/21/23 11/21/23 glipiZIDE [Glipizide ER] 2.5 mg PO DAILY 11/21/23 11/21/23 - Allergies Allergies/Adverse Reactions: Allergies Allergy/AdvReac Type Severity Reaction Status Date / Time No Known Drug Allergies Allergy Verified 11/21/23 10:21 - Social History Does the pt smoke?: No Smoking Status: Never smoker Does the pt drink ETOH?: Yes Does the pt have substance abuse?: No - Immunizations Immunizations are current?: Yes - POLST Patient has POLST: No PD ED PE NORMAL - Vitals Vital signs reviewed: Yes - General General: Alert and oriented X 3, No acute distress - Derm Derm: Normal color, Warm and dry - Extremities Extremities: Other (There is area of warmth, redness, and swelling about palm sized to the posteromedial right knee area that is tender. There is some mild leg asymmetry with the right being larger than the left.) - Neuro Neuro: Alert and oriented X 3, Normal speech Results - Vitals Vitals: Vital Signs - 24 hr 11/21/23 11/21/23 10:21 12:26 Temperature 36.5 C Heart Rate 94 82 Respiratory 18 16 Rate Blood Pressure 135/76 H 135/82 H O2 Saturation 94 98 Oxygen O2 Source Room air PD Medical Decision Making - ED course ED course: 83-year-old woman with superficial vein thrombosis in the right leg by ultrasound. She is at high risk for progression given age and personal history of DVT and nothing in the history to suggest increased bleeding risk so after discussion she would like to go ahead with therapeutic anticoagulation pending follow-up which seems reasonable. She does understand there is an increased bleeding risk with this. Departure - Departure Disposition: 01 Home, Self Care Clinical Impression: Superficial vein thrombosis Condition: Good Record reviewed to determine appropriate education?: Yes Instructions: ED Phlebitis Superficial Prescriptions: Apixaban [Eliquis] 1 tab PO BID 45 Days #90 tablet Comments: I sent your Prescription to [facility] in [place]. I did look at [employer] is formulary and this is a preferred brand. You can more use warm compresses as needed. Follow-up with your doctor in 1 week for recheck. Return if worse. Forms: PCP List
[2023-11-21 12:35] VITALS: BP 135/82; O2SAT 98
--- NOTE | 2023-11-21 13:17 | Ultrasound Report ---
PROCEDURE: Duplex Ext Veins Right INDICATIONS: RLE swelling TECHNIQUE: Real-time imaging, as well as color and pulse Doppler interrogation, were performed of th e lower extremity deep veins from the inguinal ligament to the popliteal fossa. Attempted visualizati on of the calf veins was performed. COMPARISON: None. FINDINGS: The deep veins are normally compressible, and free of intraluminal thrombus. Color and pu lse Doppler demonstrate normal phasic intraluminal flow. There is normal augmentation response to di stal compression maneuver. Nevertheless, there are internal echoes and incomplete compressibility involving the superficial veno us system at the medial knee the area concern IMPRESSION: No deep venous thrombosis of the visualized lower extremity. Superficial variceal thrombosis at the medial knee Reviewed by: Naseem Way MD on 11/21/2023 12:15 PM [facility] Approved by: Naseem Way MD on 11/21/2023 12:15 PM [facility] Station ID: [id number]
== END 2023-11-21 12:48 | disposition home or self-care (01) ==
LOC: ED 10:14
DX: I82.811 Embolism and thrombosis of superficial veins of right lower extremity (principal); Z86.718 Personal history of other venous thrombosis and embolism
CPT/HCPCS: 99284

== ENCOUNTER 2023-11-30 10:05 | Outpatient (CLI) | payer MEDICARE, OTHER ==
--- NOTE | 2023-12-02 09:45 | Mammography Report ---
BILATERAL DIGITAL SCREENING MAMMOGRAM 3D/2D: 11/30/2023 CLINICAL: Routine screening. Comparison is made to exams dated: 10/15/2021 mammogram, 07/12/2018 mammogram, and 09/30/2015 mammogram - [facility]. There are scattered areas of fibroglandular density in both breasts (category b / 25%-50% glandular t issue). No significant masses, calcifications, or other findings are seen in either breast. There has been no significant interval change. IMPRESSION: NEGATIVE There is no mammographic evidence of malignancy. A 1 year screening mammogram is recommended. Based on the Tyrer Cuzick model (a risk assessment model) the patient's lifetime risk is 0.3% and her 10 year risk is 0.0%. According to the ACR, ACS, and NCCN guidelines, an annual breast MRI exam olive g with mammogram is recommended if the patient's lifetime risk is 20% or greater. This exam was interpreted at Station ID: [id number]. NOTE: For mammograms, a report in lay terms will be sent to the patient. Approximately 15% of breast malignancies will not be visualized mammographically. In the management of a palpable breast mass, a negative mammogram must not discourage biopsy of a clinically suspicious lesion. Electronically Signed By: Mariam grimes/joey:12/01/2023 15:33:45 ACR BI-RADS Category 1: Negative 3341F PARENCHYMAL PATTERN: (A) - The breast(s) demonstrate(s) scattered fibroglandular densities. BI-RADS CATEGORY: (1) - 1 Mammogram [id number] 1 year screening LATERALITY: (B)
== END 2023-11-30 10:06 | disposition home or self-care (01) ==
LOC: DI 10:05
PROVIDERS: ATTEND Internal Medicine
DX: Z12.31 Encounter for screening mammogram for malignant neoplasm of breast (principal); R92.323 Mammographic fibroglandular density, bilateral breasts

== ENCOUNTER 2024-02-16 10:55 | Outpatient (CLI) | payer OTHER ==
[2024-02-16 11:54] LABS: THYROID STIMULATING HORMONE 2.15 uIU/mL (0.34-5.60)
[2024-02-16 12:02] LABS: FERRITIN 62.1 ng/mL (11.0-306.8)
== END 2024-02-16 10:56 | disposition home or self-care (01) ==
LOC: LAB 10:55
PROVIDERS: ATTEND Internal Medicine
DX: L65.0 Telogen effluvium (principal)
CPT/HCPCS: 36415; 82306; 82607; 82728; 82746; 83540; 84439; 84443; 84466

== ENCOUNTER 2024-04-14 09:59 | Outpatient (CLI) | payer OTHER ==
[2024-04-14 10:20] LABS: CALCIUM 9.9 mg/dL (8.5-10.3); CREATININE 1.1 mg/dL (0.6-1.3); MAGNESIUM 2.1 mg/dL (1.7-2.3); POTASSIUM 4.2 mmol/L (3.5-4.5)
== END 2024-04-14 10:00 | disposition home or self-care (01) ==
LOC: LAB 09:59
PROVIDERS: ATTEND Internal Medicine Cardiovascular Disease
DX: I10 Essential (primary) hypertension (principal)
CPT/HCPCS: 36415; 80048; 83735